=== PATIENT | male | born 1950 | race Caucasian/White ===

== ENCOUNTER 2016-10-22 12:17 | Emergency (ER) | payer MEDICARE, OTHER ==
--- NOTE | 2016-10-22 12:20 | EDM.PDOC ---
ED HPI GENERAL MEDICAL PROBLEM - General Chief Complaint: Eye Problems Stated Complaint: LT EYE CLOUDED VISION Time Seen by Provider: 10/22/16 12:20 - History of Present Illness INITIAL COMMENTS - FREE TEXT/NARRATIVE: 65 year old male presents emergency room with left-sided vision changes. This was first noticed about 3:00 this morning the patient awoke and noticed he had a spot in his left vision the spot would move when he looked to the com writer to the left or upper down at times it had a almost spiderweb appearance the comes and goes. The patient has a history of advanced coronary artery disease he 's had three-vessel bypass in the past he takes 81 mg of aspirin daily. He is treated for hyperlipidemia with Pravachol. He has an extensive family history of vascular problems. - Related Data Allergies Allergy/AdvReac Type Severity Reaction Status Date / Time ciprofloxacin Allergy Severe Swollen Verified 10/22/16 12:25 Tongue Penicillins AdvReac Severe Fainting Verified 10/22/16 12:25 Home Meds: Home Meds Cyclobenzaprine [Flexeril] 5 mg PO ASDIRECTED PRN 05/10/14 [History] DULoxetine [Cymbalta] 60 mg PO DAILY 05/10/14 [History] Pravastatin [Pravachol] 40 mg PO DAILY 05/10/14 [History] Tamsulosin HCl [Flomax] 0.4 mg PO QPM #14 cap.er.24h 05/10/14 [Rx] metFORMIN HCl [Metformin HCl] 500 mg PO DAILY 05/10/14 [History] Aspirin [Ecotrin] 81 mg PO DAILY 08/24/15 [History] Mometasone Furoate [Nasonex] 17 gm NS ASDIRECTED PRN 08/24/15 [History] Past Medical History Cardiovascular History: Reports: High Cholesterol Gastrointestinal History: Reports: Hemorrhoids, Other (See Below) Other Gastrointestinal History: hernia (umbilical) Musculoskeletal History: Reports: Other (See Below) Other Musculoskeletal History: carpal tunnel Endocrine/Metabolic History: Reports: Diabetes, Type II Dermatologic History: Reports: Other (See Below) Other Dermatologic History: "back rash" chronic - Past Surgical History HEENT Surgical History: Reports: Other (See Below) Cardiovascular Surgical History: Reports: Percutaneous Transluminal Angioplasty GI Surgical History: Reports: Hernia Repair/Other Neurological Surgical History: Reports: Laminectomy, Other (See Below) Musculoskeletal Surgical History: Reports: Carpal Tunnel, Knee Replacement Social & Family History - Tobacco Use Smoking Status *Q: Never Smoker Years of Tobacco use: 20 Packs/Tins Daily: 1 Used Tobacco, but Quit: Yes Month Tobacco Last Used: 11 Second Hand Smoke Exposure: No - Alcohol Use Days Per Week of Alcohol Use: 2 Number of Drinks Per Day: 1 Total Drinks Per Week: 2 - Recreational Drug Use Recreational Drug Use: No Drug Use in Last 12 Months: No ED ROS GENERAL - Review of Systems Review Of Systems: See Below Constitutional: Reports: No Symptoms HEENT: Denies: Ear Pain, Eye Discharge, Eye Pain, Rhinitis, Sinus Problem Respiratory: Reports: No Symptoms Cardiovascular: Reports: No Symptoms GI/Abdominal: Reports: No Symptoms : Reports: No Symptoms Neurological: Reports: No Symptoms. Denies: Confusion, Dizziness, Headache, Numbness, Pre-Existing Deficit ED EXAM GENERAL W FULL EYE - Physical Exam Exam: See Below Exam Limited By: No Limitations General Appearance: Alert, No Apparent Distress Eye Exam: Bilateral Eye: EOMI, Normal Inspection, PERRL, Other (Visual bess are intact both eyes.) Visual Acuity (R) 20/: 25 Visual Acuity (L) 20/: 25 (20/20 with both eyes) With Correction: No Eyelids: Left: Normal Appearance Conjunctiva & Sclera: Bilateral: Normal Appearance Cornea Exam: Bilateral: Normal Appearance Pupils: Normal Accommodation Pupillary Reaction: Bilateral: Brisk Anterior Chamber: Bilateral: Normal Appearance Posterior Chamber: Bilateral: Unable to Examine (I cannot get good views of the optic disc) Respiratory/Chest: No Respiratory Distress, Lungs Clear, Normal Breath Sounds Cardiovascular: Regular Rate, Rhythm, No Edema, No Murmur Course - Vital Signs Last Recorded V/S: Last Vital Signs Temp 36.4 C 10/22/16 12:22 Pulse 77 10/22/16 12:22 Resp 18 10/22/16 12:22 BP 143/85 H 10/22/16 12:22 Pulse Ox 96 10/22/16 12:22 - Orders/Labs/Meds Labs: Laboratory Tests 10/22/16 10/22/16 10/22/16 Range/Units 13:17 13:17 13:17 WBC 7.33 (4.23-9.07) K/mm3 RBC 4.66 (4.63-6.08) M/mm3 Hgb 13.6 L (13.7-17.5) gm/L Hct 41.4 (40.1-51.0) % MCV 88.8 (79.0-92.2) fl MCH 29.2 (25.7-32.2) pg MCHC 32.9 (32.2-35.5) g/dl RDW Std Deviation 45.9 H (35.1-43.9) fL Plt Count 182 (163-337) K/mm3 MPV 10.4 (9.4-12.3) fl Neutrophils % (Manual) 65 H (40-60) % Band Neutrophils % 0 (0-10) % Lymphocytes % (Manual) 22 (20-40) % Atypical Lymphs % 0 % Monocytes % (Manual) 9 (2-10) % Eosinophils % (Manual) 2 (0.8-7.0) % Basophils % (Manual) 2 H (0.2-1.2) Platelet Estimate Adequate RBC Morph Comment Normal ESR 9 (0-15) mm/hr C-Reactive Protein < 0.2 (<1.0) mg/dL Meds: Medications Discontinued Medications Generic Name Dose Route Start Last Admin Trade Name Freq PRN Reason Stop Dose Admin Aspirin 325 mg 10/22/16 13:11 10/22/16 13:21 Ecotrin PO 10/22/16 13:12 325 mg ONETIME ONE Administration - Re-Assessments/Exams Free Text/Narrative Re-Assessment/Exam: 10/22/16 13:30 Patient will have his aspirin increased to 325 mg daily case discussed with Dr. Catherine who recommends checking a CBC to ensure he is not anemic sedimentation rate and C-reactive protein to make sure he doesn't have an inflammatory process going on the patient is on baby aspirin daily we'll increase this to 325 mg daily. The [facility] would like for the patient to have a carotid Doppler and echocardiogram done as soon as possible and the patient follow-up with him on Monday. The patient should check in with the [facility] by phone tomorrow. Departure - Departure Time of Disposition: 14:19 Disposition: Home, Self-Care 01 Clinical Impression: Retinal artery occlusion, branch - Discharge Information Instructions: Central Retinal Artery Occlusion Referrals: Gelacio Lloyd MD [Primary Care Provider] - Forms: ED Department Discharge Additional Instructions: Return to the emergency room with any questions problems worsening symptoms. Increase your daily aspirin from 81 mg, or a baby aspirin, to a regular aspirin , or 325 mg. For today you received this in the emergency room. So start this tomorrow morning. Call Dr. Catherine tomorrow, Monday. [phone], this is his cell number. His office number is [phone]. The plan is for you to be scheduled for a echocardiogram, this is an ultrasound your heart and a carotid Doppler, a ultrasound of your carotid arteries Monday morning and then follow-up with Dr. Catherine later that afternoon. This studies in the physician appointment will all be in [place].
[2016-10-22 12:59] VITALS: BP 143/85
[2016-10-22] MEDS ORDERED: Aspirin 325 MG Tab.EC PO ONE (13:11)
== END 2016-10-22 14:40 | disposition home or self-care (01) ==
LOC: JD.ED 12:17
DX: H34.232 Retinal artery branch occlusion, left eye (principal); E78.00 Pure hypercholesterolemia, unspecified; E11.9 Type 2 diabetes mellitus without complications; Z88.0 Allergy status to penicillin; Z79.899 Other long term (current) drug therapy; Z79.82 Long term (current) use of aspirin; Z79.84 Long term (current) use of oral hypoglycemic drugs; Z96.659 Presence of unspecified artificial knee joint
CPT/HCPCS: 36415; 85025; 85652; 86140; 99284; A9270

== ENCOUNTER 2020-02-26 20:55 | Emergency (ER) | payer MEDICARE, OTHER ==
[2020-02-26] MEDS ORDERED: Sodium Chloride 0.9% 1,000 ML IV SCH (21:30)
--- NOTE | 2020-02-26 21:32 | EDM.PDOC ---
ED HPI GENERAL MEDICAL PROBLEM - General Chief Complaint: Respiratory Problem Stated Complaint: CHEST PAIN/SOB Time Seen by Provider: 02/26/20 21:16 Source of Information: Reports: Patient, Family (son) History Limitations: Reports: No Limitations - History of Present Illness INITIAL COMMENTS - FREE TEXT/NARRATIVE: 69-year-old male presents to the ED in the accompaniment of his son. He resides in [place], [place]. Patient states he was exposed to COVID-19 illness around [place] time when he took gifts over to one of his sons home. He started to develop symptoms February 12 and was diagnosed Covid positive on February 17. He is they are out of quarantine. States he had a really bad headache for about 4 to 5 days. Associated mild nasal congestion with r etention of his sense of smell and taste. Mild sore throat. Harsh nonproductive cough or occasionally bringing up some white sputum with associated fever chills. Overwhelming fatigue is his chief complaint today. He also developed chills and fever yesterday after fever had been gone for about a week. He was curled up in a blanket all day. Today's eaten some cereal and did have a hotdog for lunch. He denies any nausea vomiting or diarrhea. Patient is a type II diabetic controlled with Metformin. Is not sure how his sugars are doing. O2 sats upon arrival in the ED were 89% and settled around 93 to 94% on room air at rest. Patient is just completed a 5-day course of 6 mg of dexamethasone twice daily today. Was prescribed by Dr. Valladares. He states currently bringing up a great deal of yellowish phlegm perhaps mildly blood- tinged.. He states he coughed so hard he thought he was going to pass out. Denies any other recent changes to medications. Onset: Today, Sudden Onset Date: 02/26/20 (Paroxysmal cough early this morning with production of yellowish sputum and feeling like he was going to pass out.) Duration: Hour(s):, Constant, Getting Worse (Worse i.e. feeling more sick.) Location: Reports: Chest (Some right-sided pleuritic anterior chest pain with deep breathing and coughing) Quality: Reports: Sharp, Stabbing Severity: Moderate Improves with: Reports: None Worsens with: Reports: Other (Is with deep breathing and coughing.) Context: Reports: Other (Is at the tail end of COVID-19 illness with initial date of onset of illness February 12). Denies: Activity, Exercise, Lifting, Sick Contact, Trauma Associated Symptoms: Reports: Chest Pain, Cough (See history of present illness yellowish sputum today. Previously sputum was white in color), cough w sputum, Fever/Chills (Fever and chills starting), Malaise, Shortness of Breath, Weakness. Denies: Confusion, Diaphoresis, Headaches ( last night), Loss of Appe tite, Nausea/Vomiting (Mine on exertion.), Syncope Treatments MACHINE MAINTENANCE: Reports: Other (see below) (None today other than his regular meds) Chest Pain Score (Numeric/FACES): 3 - Related Data Allergies Allergy/AdvReac Type Severity Reaction Status Date / Time ciprofloxacin Allergy Severe Swollen Verified 02/26/20 21:10 Tongue Penicillins AdvReac Severe Fainting Verified 02/26/20 21:10 Home Meds: Home Meds DULoxetine [Cymbalta] 60 mg PO DAILY 05/10/14 [History] Pravastatin [Pravachol] 40 mg PO DAILY 05/10/14 [History] Tamsulosin HCl [Flomax] 0.4 mg PO QPM #14 cap.er.24h 05/10/14 [Rx] metFORMIN HCl [Metformin HCl] 500 mg PO BID 05/10/14 [History] Aspirin [Ecotrin] 81 mg PO DAILY 08/24/15 [History] Gabapentin [Neurontin] 600 mg PO TID 02/26/20 [History] Nitroglycerin 1 tab SL ASDIRECTED PRN 02/26/20 [History] oxyCODONE HCl/Acetaminophen [Oxycodone-Acetaminophen 5-325] 1 tab PO QID PRN 02/26/20 [History] Azithromycin [Zithromax] 250 mg PO DAILY #6 tablet 02/27/20 [Rx] Past Medical History HEENT History: Reports: Cataract, Impaired Vision Cardiovascular History: Reports: High Cholesterol Respiratory History: Reports: Sleep Apnea, Other (See Below) (A CPAP at bedtime. Of pneumonia at least once in the past) Gastrointestinal History: Reports: Hemorrhoids, Other (See Below) Other Gastrointestinal History: hernia (umbilical) Genitourinary History: Reports: BPH (Takes tamsulosin daily.), Prostate Disorder, Renal Calculus Musculoskeletal History: Reports: Other (See Below) Other Musculoskeletal History: carpal tunnel Endocrine/Metabolic History: Reports: Diabetes, Type II Hematologic History: Reports: Other (See Below) (DVT left lower extremity after being laid up for a period time with a broken bones in his left foot has been off anticoagulants for many years) Dermatologic History: Reports: Other (See Below) Other Dermatologic History: "back rash" chronic - Past Surgical History HEENT Surgical History: Reports: Other (See Below) Cardiovascular Surgical History: Reports: Percutaneous Transluminal Angioplasty GI Surgical History: Reports: Hernia Repair/Other Neurological Surgical History: Reports: Laminectomy, Other (See Below) Musculoskeletal Surgical History: Reports: Carpal Tunnel, Knee Replacement Social & Family History - Family History Family Medical History: No Pertinent Family History - Caffeine Use Caffeine Use: Reports: Coffee - Living Situation & Occupation Living situation: Reports: (For employed [employer]. apparently is currently in [place]) Occupation: Employed ED ROS GENERAL - Review of Systems Review Of Systems: See Below Constitutional: Reports: Fever, Chills, Malaise, Weakness, Fatigue, Decreased Appetite. Denies: Weight Loss HEENT: Reports: Glasses, Hearing Loss (For reading. Mildly hard of hearing and does not wear hearing aids.) Respiratory: Reports: Shortness of Breath, Wheezing, Pleuritic Chest Pain, Cough (Pleuritic right anterior chest pain. Severe paroxysmal cough with a change to yellow sputum this morning compared to white), Sputum ( the last several days.). Denies: Hemoptysis ( Yellow sputum) Cardiovascular: Reports: Chest Pain (Right-sided pleuritic chest pain worse with coughing), Blood Pressure Problem, Dyspnea on Exertion ( left lower extremity edema post DVT in the past.), Edema (With severe coughing this morning he nearly passed out. Always has a little bit of), Lightheadedness, Palpitations. Denies: Claudication, Orthopnea Endocrine: Reports: Fatigue (Overwhelming fatigue and plays out easily on minimal exertion.), Polydypsia, Polyuria GI/Abdominal: Denies: Constipation, Nausea, Vomiting : Reports: Frequency, Other (BPH). Denies: Incontinence Musculoskeletal: Reports: Neck Pain, Shoulder Pain (Arthritic degenerative disc disease cervical spine), Back Pain (Chronic low low back pain. Patient had multilevel laminectomy and discectomies which failed and he has chronic severe sciatica pain left anterior medial thigh for which she takes gabapentin. His back is had multiple surgeries with rods he believes from S1-2 T10.), Joint Pain ( rotator cuff disease both shoulders arthritic change knees and hips) Skin: Reports: No Symptoms Neurological: Reports: Dizziness, Headache (With coughing this morning.), Difficulty Walking, Weakness. Denies: Confusion, Numbness ( Mild headache today), Syncope, Tingling, Tremors (Dyspnea and weakness), Trouble Speaking, Change in Speech, Gait Disturbance Psychiatric: Reports: No Symptoms Hematologic/Lymphatic: Reports: No Symptoms Immunologic: Reports: No Symptoms ED EXAM, GENERAL - Physical Exam Exam: See Below Exam Limited By: No Limitations General Appearance: Alert, Mild Distress, Other (Peers to not be feeling well. Temperature is 36.2 heart rate was 47 and sinus bradycardia in the monitor respiratory to 16 with O2 sats of 93% room air at rest. 89% at time of presentation to the ED BP mildly elevated 178/87.) Eye Exam: Bilateral Eye: Normal Inspection (No scleral icterus or blepharal pallor.), PERRL Ears: Normal TMs Throat/Mouth: Normal Inspection, Normal Lips, Normal Oropharynx, Other Head: Atraumatic (Is moist.), Normocephalic, Other Neck: Limited Range of Motion (Overt signs of any head or facial trauma crepitus on lateral rotation with loss of 5 degrees lateral flexion extension). No: Carotid Bruit, Lymphadenopathy (L) ( and flexion.), Lymphadenopathy (R), Thyromegaly Respiratory/Chest: No Accessory Muscle Use ( Left lung is clear to auscultation.), Decreased Breath Sounds (Mildly decreased breath sounds left lung base no dullness to percussion to suggest pleural effusion), Rhonchi (Tight throughout the posterior right lung field with a few rales right lung base.). No: Respiratory Distress Cardiovascular: No Gallop, No Murmur, No Rub, Bradycardia. No: Normal Peripheral Pulses, No Edema Peripheral Pulses: 2+: Carotid (L), Carotid (R), Posterior Tibial (L), Posterior Tibial (R), Dorsalis Pedis (L), Dorsalis Pedis (R) GI/Abdominal: Normal Bowel Sounds, Non-Tender, No Organomegaly, No Mass, Pelvis Stable, Other (Mildly obese. Firm to palpation). No: Guarding, Rigid, Rebound, Tender Back Exam: Other (Full surgeries lumbar spine well-healed scars) Extremities: Pedal Edema (Trace edema left ankle and dorsal foot. Right lower extremity is normal), Other (Degenerative arthritic changes knees with limited internal/external rotation of both hips.) Neurological: Alert, Oriented, CN II-XII Intact, Normal Cognition, Other (Antalgic gait limping left side) Psychiatric: Normal Affect, Normal Mood Skin Exam: Warm, Dry, Normal Color, No Rash #1 Interpretation EKG Date: 02/26/20 Time: 21:10 Rhythm: Other Rate (Beats/Min): 47 [place]: Other ([place] is 0 degrees suggesting horizontal heart) P-Wave: Present QRS: Other (Near Q-wave V1 V2 suggestive of old anteroseptal myocardial infarction.) ST-T: Other (T wave flattening leads III, aVF nonspecific finding wandering baseline) QT: Normal EKG Interpretation Comments: Borderline ECG Course - Vital Signs Last Recorded V/S: Last Vital Signs Temp 36.2 C 02/26/20 21:06 Pulse 47 L 02/26/20 21:06 Resp 16 02/26/20 21:06 BP 178/87 H 02/26/20 21:06 Pulse Ox 93 L 02/26/20 21:06 - Orders/Labs/Meds Orders: Active Orders 24 hr Category Date Time Status EKG Documentation Completion [RC] STAT Care 02/26/20 21:29 Active Chest 1V Frontal [CR] Stat Exams 02/26/20 21:29 Taken Chest PE [Ang Chest] [CT] Stat Exams 02/26/20 22:31 Taken CULTURE BLOOD [BC] Stat Lab 02/26/20 21:53 Received CULTURE BLOOD [BC] Stat Lab 02/26/20 22:00 Received URINALYSIS W/MICROSCOPIC [UA W/MICROSCOPIC] [URIN] Stat Lab 02/26/20 21:31 Ordered Azithromycin [Zithromax] 500 mg Med 02/27/20 00:15 Active Sodium Chloride 0.9% [Normal Saline (AdvBag)] 250 ml IV Q24H Sodium Chloride 0.9% [Normal Saline] 1,000 ml Med 02/26/20 21:30 Active IV ASDIRECTED Blood Culture x2 Reflex Set [OM.PC] Stat Oth 02/26/20 21:30 Ordered Isolation [COMM] Routine Oth 02/26/20 21:35 Ordered EKG 12 Lead [EK] Stat Ther 02/26/20 21:16 Stop Req Medication Orders Sodium Chloride (Normal Saline) 1,000 mls @ 100 mls/hr IV ASDIRECTED ROBIN Last Admin: 02/26/20 21:55 Dose: 100 mls/hr Documented by: TRACI Azithromycin 500 mg/ Sodium (Chloride) 250 mls @ 250 mls/hr IV Q24H ROBIN Last Admin: 02/27/20 00:19 Dose: 250 mls/hr Documented by: TRACI Labs: Laboratory Tests 02/26/20 02/26/20 02/26/20 Range/Units 21:17 21:17 21:17 WBC 11.29 H (4.23-9.07) K/mm3 RBC 5.20 (4.63-6.08) M/mm3 Hgb 14.5 (13.7-17.5) gm/dl Hct 44.8 (40.1-51.0) % MCV 86.2 (79.0-92.2) fl MCH 27.9 (25.7-32.2) pg MCHC 32.4 (32.2-35.5) g/dl RDW Std Deviation 44.5 H (35.1-43.9) fL Plt Count 199 (163-337) K/mm3 MPV 10.7 (9.4-12.3) fl Neutrophils % (Manual) 82 H (40-60) % Band Neutrophils % 0 (0-10) % Lymphocytes % (Manual) 14 L (20-40) % Atypical Lymphs % 0 % Monocytes % (Manual) 4 (2-10) % Eosinophils % (Manual) 0 L (0.8-7.0) % Basophils % (Manual) 0 L (0.2-1.2) Platelet Estimate Adequate RBC Morph Comment Normal PT 10.6 (9.7-12.0) SECONDS INR 0.99 APTT 25.9 (21.7-31.4) SECONDS D-Dimer, Quantitative 3.67 H (0.19-0.50) mg/L Sodium 135 L (136-145) mEq/L Potassium 4.9 (3.5-5.1) mEq/L Chloride 100 (98-107) mEq/L Carbon Dioxide 25 (21-32) mEq/L Anion Gap 14.9 (5-15) BUN 25 H (7-18) mg/dL Creatinine 1.0 (0.7-1.3) mg/dL Est Cr Clr Drug Dosing TNP Estimated GFR (MDRD) > 60 (>60) mL/min BUN/Creatinine Ratio 25.0 H (14-18) Glucose 273 H (80-115) mg/dL Hemoglobin A1c (4.50-6.20) % Lactic Acid (0.4-2.0) mmol/L Calcium 8.7 (8.5-10.1) mg/dL Magnesium 2.0 (1.8-2.4) mg/dl Ferritin (26-388) ng/ml Total Bilirubin 0.7 (0.2-1.0) mg/dL AST 28 (15-37) U/L ALT 53 (16-63) U/L Alkaline Phosphatase 85 (46-116) U/L Lactate Dehydrogenase 279 H (85-227) U/L CK-MB (CK-2) < 0.5 (0-3.6) ng/ml Troponin I < 0.017 (0.00-0.056) ng/mL C-Reactive Protein 7.3 H* (<1.0) mg/dL NT-Pro-B Natriuret Pep (0-125) pg/mL Total Protein 7.3 (6.4-8.2) g/dl Albumin 3.0 L (3.4-5.0) g/dl Globulin 4.3 gm/dL Albumin/Globulin Ratio 0.7 L (1-2) 02/26/20 02/26/20 02/26/20 Range/Units 21:17 21:17 21:17 WBC (4.23-9.07) K/mm3 RBC (4.63-6.08) M/mm3 Hgb (13.7-17.5) gm/dl Hct (40.1-51.0) % MCV (79.0-92.2) fl MCH (25.7-32.2) pg MCHC (32.2-35.5) g/dl RDW Std Deviation (35.1-43.9) fL Plt Count (163-337) K/mm3 MPV (9.4-12.3) fl Neutrophils % (Manual) (40-60) % Band Neutrophils % (0-10) % Lymphocytes % (Manual) (20-40) % Atypical Lymphs % % Monocytes % (Manual) (2-10) % Eosinophils % (Manual) (0.8-7.0) % Basophils % (Manual) (0.2-1.2) Platelet Estimate RBC Morph Comment PT (9.7-12.0) SECONDS INR APTT (21.7-31.4) SECONDS D-Dimer, Quantitative (0.19-0.50) mg/L Sodium (136-145) mEq/L Potassium (3.5-5.1) mEq/L Chloride (98-107) mEq/L Carbon Dioxide (21-32) mEq/L Anion Gap (5-15) BUN (7-18) mg/dL Creatinine (0.7-1.3) mg/dL Est Cr Clr Drug Dosing Estimated GFR (MDRD) (>60) mL/min BUN/Creatinine Ratio (14-18) Glucose (80-115) mg/dL Hemoglobin A1c 7.10 H (4.50-6.20) % Lactic Acid (0.4-2.0) mmol/L Calcium (8.5-10.1) mg/dL Magnesium (1.8-2.4) mg/dl Ferritin 679 H (26-388) ng/ml Total Bilirubin (0.2-1.0) mg/dL AST (15-37) U/L ALT (16-63) U/L Alkaline Phosphatase (46-116) U/L Lactate Dehydrogenase (85-227) U/L CK-MB (CK-2) (0-3.6) ng/ml Troponin I (0.00-0.056) ng/mL C-Reactive Protein (<1.0) mg/dL NT-Pro-B Natriuret Pep 254 H (0-125) pg/mL Total Protein (6.4-8.2) g/dl Albumin (3.4-5.0) g/dl Globulin gm/dL Albumin/Globulin Ratio (1-2) 02/26/20 Range/Units 21:53 WBC (4.23-9.07) K/mm3 RBC (4.63-6.08) M/mm3 Hgb (13.7-17.5) gm/dl Hct (40.1-51.0) % MCV (79.0-92.2) fl MCH (25.7-32.2) pg MCHC (32.2-35.5) g/dl RDW Std Deviation (35.1-43.9) fL Plt Count (163-337) K/mm3 MPV (9.4-12.3) fl Neutrophils % (Manual) (40-60) % Band Neutrophils % (0-10) % Lymphocytes % (Manual) (20-40) % Atypical Lymphs % % Monocytes % (Manual) (2-10) % Eosinophils % (Manual) (0.8-7.0) % Basophils % (Manual) (0.2-1.2) Platelet Estimate RBC Morph Comment PT (9.7-12.0) SECONDS INR APTT (21.7-31.4) SECONDS D-Dimer, Quantitative (0.19-0.50) mg/L Sodium (136-145) mEq/L Potassium (3.5-5.1) mEq/L Chloride (98-107) mEq/L Carbon Dioxide (21-32) mEq/L Anion Gap (5-15) BUN (7-18) mg/dL Creatinine (0.7-1.3) mg/dL Est Cr Clr Drug Dosing Estimated GFR (MDRD) (>60) mL/min BUN/Creatinine Ratio (14-18) Glucose (80-115) mg/dL Hemoglobin A1c (4.50-6.20) % Lactic Acid 1.8 (0.4-2.0) mmol/L Calcium (8.5-10.1) mg/dL Magnesium (1.8-2.4) mg/dl Ferritin (26-388) ng/ml Total Bilirubin (0.2-1.0) mg/dL AST (15-37) U/L ALT (16-63) U/L Alkaline Phosphatase (46-116) U/L Lactate Dehydrogenase (85-227) U/L CK-MB (CK-2) (0-3.6) ng/ml Troponin I (0.00-0.056) ng/mL C-Reactive Protein (<1.0) mg/dL NT-Pro-B Natriuret Pep (0-125) pg/mL Total Protein (6.4-8.2) g/dl Albumin (3.4-5.0) g/dl Globulin gm/dL Albumin/Globulin Ratio (1-2) Meds: Medications Generic Name Dose Route Start Last Admin Trade Name Dexter PRN Reason Stop Dose Admin Sodium Chloride 1,000 mls @ 100 mls/hr 02/26/20 21:30 02/26/20 21:55 Normal Saline IV 100 mls/hr ASDIRECTED ROBIN Administration Azithromycin 500 mg/ Sodium 250 mls @ 250 mls/hr 02/27/20 00:15 02/27/20 00:19 Chloride IV 250 mls/hr Q24H ROBIN Administration - Radiology Interpretation Free Text/Narrative:: 69-year-old male goal 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 He states he was exposed to COVID-19 illness shortly after [place] and became symptomatic with headache body aches sore throat and cough around 12 February. He tested positive for COVID-19 illness on February 17. Today he just finished a 5-day course of dexamethasone 6 mg twice daily from Dr. Brenda Chance. This morning he developed a severe paroxysmal cough producing yellowish sputum and associated fever chills yesterday. Increased weakness and increased loss of appetite today. Otherwise he thought he was on the mend. O2 sats are 93% at the time of presentation to the ED. Does have adventitial sounds throughout the right lung worrisome for possible developing pneumonia. Afebrile at the time of my exam. Septic work-up will be commenced. Of note the patient is a type II diabetic controlled with Metformin - Re-Assessments/Exams Free Text/Narrative Re-Assessment/Exam: 02/26/20 22:30 Hematology reveals a mildly elevated white count at 11.29 with 82% neutrophils no bands cells reported hemoglobin 14.5 with a hematocrit of 44.8 platelet count 199,000. PT is 10.6 with an INR of 0.99. PTT is 25.9 D- dimer is markedly elevated at 3.67. Sodium 135 with a potassium of 4.9 chloride 100 with a bicarb of 25 and a gap is 14.9 BUN is 25 creatinine is 1.0 and a GFR is greater than 60. Glucose 273 and is a type II diabetic control with Metformin 500 mg twice daily hemoglobin A1c is 7.10 calcium is 8.7 magnesium is 2.0 serum ferritin remains elevated at 679 liver function normal lactic dehydrogenase mildly elevated at 279. CK-MB fraction is less than 0.5 troponin I is less than 0.017 C-reactive protein is 7.3 BNP is 254 total protein 7.3 with an albumin fraction of 3.0 renal function is therefore good enough to tolerate IV contrast media and he will undergo CT pulmonary angiogram due to elevated D- dimer which is secondary to COVID-19 illness. Chest x-ray done portably today reveals mild cardiomegaly and mild hazy infiltrates both lower lobes and perhaps right middle lobe compatible with COVID-19 pneumonitis. No consolidated pneumonia is evident. 02/26/20 22:39 I have Discussed the findings with the patient and his son today of the lab test. He will need a CT pulmonary angiogram of his chest to rule out PE as a cause of his pleuritic right anterior chest pain and elevated D-dimer of 3.57. Especially in light of having a previous DVT left lower extremity in the past. O2 sats are sitting between 91 and 93%. Patient's Metformin will have to be placed on hold for the next 72 hours. 02/26/20 23:59 CT pulmonary angiogram of the chest has been completed. It is of poor quality due to timing of administration of contrast media. There is no obvious pulmonary emboli in the first second or third branches of the pulmonary arterial system. There appears to be an area of pneumonic consolidation right middle lobe with bibasilar atelectasis. Subtle peripheral groundglass opacities are present in upper lungs bilaterally. Hypoventilatory changes versus additional groundglass opacities in the lingula and right middle lobe and dependent portions of the lower lobes is appreciated. Will be given the first dose of azithromycin 500 mg intravenously while in department. He will then be placed on a Z-Ra to take to 50 mg once daily for another 6 days. He med list suggest that he is allergic to ciprofloxacin and penicillin with syncopal event from the penicillin suggesting possible anaphylactic reaction. 2 sats remained 94 to 95% on room air. Departure - Departure Time of Disposition: 00:55 Disposition: Home, Self-Care 01 Condition: Fair Clinical Impression: COVID-19 determined by clinical diagnostic criteria, Right middle lobe pulmonary infiltrate - Discharge Information *PRESCRIPTION DRUG MONITORING PROGRAM REVIEWED*: Not Applicable *COPY OF PRESCRIPTION DRUG MONITORING REPORT IN PATIENT ANA MARIA: Not Applicable Prescriptions: Azithromycin [Zithromax] 250 mg PO DAILY #6 tablet Instructions: COVID-19 Frequently Asked Questions Referrals: Gelacio Lloyd MD [Primary Care Provider] - Forms: ED Department Discharge Additional Instructions: Evaluation in the emergency room today in regards to gradually recovering from COVID-19 illness. You are felt to be on day 14 of illness and are no longer contagious to other people. Chest x-ray done in the emergency room does confirm bilateral infiltrates in both lower lobes compatible with Covid viral pneumonia . You just finished a 5-day course of dexamethasone to reduce inflammation in the lungs. Lab test revealed an elevated D-dimer which is a marker for potential blood clot development and with your past history of a blood clot in your left leg it was felt prudent to pursue a CT pulmonary angiogram of the chest to rule out any blood clots in the lungs which have been occurring intermittently during COVID-19 illness. No evidence of pulmonary emboli were identified in your lungs. However it does suggest that there is a area of consolidation in the right middle lobe of your lung on the right side compatible with a developing pneumonia. This would explain why your sputum changed to yellow color this morning and recurrence of fever and chills. You were therefore given initial dose of antibiotic azithromycin 500 mg intravenously and you will need to take the pill form of this medication to 50 mg once daily at bedtime for the next 6 days starting tonight. Due to receiving intravenous contrast medication you need to put your Metformin medication which is for your diabetes on hold for the next 2-1/2 days to prevent any side effects on the kidneys. Continue Tylenol 650 mg every 4 hours as needed for fever relief. If not feeling markedly improved in 72 to 96 hours you should be seen again. Dust arranging follow-up with your primary care practitioner Dr. Valladares in approximately 1 week's time or sooner if any other problems occur or return to the ED. Sepsis Event Note (ED) - Evaluation Sepsis Screening Result: No Definite Risk - Focused Exam Vital Signs: Vital Signs Temp Pulse Resp BP Pulse Ox 02/26/20 21:06 36.2 C 47 L 16 178/87 H 93 L - My Orders Last 24 Hours: My Active Orders 02/26/20 21:16 EKG 12 Lead [EK] Stat 02/26/20 21:29 EKG Documentation Completion [RC] STAT Chest 1V Frontal [CR] Stat 02/26/20 21:30 Sodium Chloride 0.9% [Normal Saline] 1,000 ml IV ASDIRECTED Blood Culture x2 Reflex Set [OM.PC] Stat 02/26/20 21:31 URINALYSIS W/MICROSCOPIC [UA W/MICROSCOPIC] [URIN] Stat 02/26/20 21:35 Isolation [COMM] Routine 02/26/20 21:53 CULTURE BLOOD [BC] Stat 02/26/20 22:00 CULTURE BLOOD [BC] Stat 02/26/20 22:31 Chest PE [Ang Chest] [CT] Stat 02/27/20 00:15 Azithromycin [Zithromax] 500 mg Sodium Chloride 0.9% [Normal Saline (AdvBag)] 250 ml IV Q24H - Assessment/Plan Last 24 Hours: My Active Orders 02/26/20 21:16 EKG 12 Lead [EK] Stat 02/26/20 21:29 EKG Documentation Completion [RC] STAT Chest 1V Frontal [CR] Stat 02/26/20 21:30 Sodium Chloride 0.9% [Normal Saline] 1,000 ml IV ASDIRECTED Blood Culture x2 Reflex Set [OM.PC] Stat 02/26/20 21:31 URINALYSIS W/MICROSCOPIC [UA W/MICROSCOPIC] [URIN] Stat 02/26/20 21:35 Isolation [COMM] Routine 02/26/20 21:53 CULTURE BLOOD [BC] Stat 02/26/20 22:00 CULTURE BLOOD [BC] Stat 02/26/20 22:31 Chest PE [Ang Chest] [CT] Stat 02/27/20 00:15 Azithromycin [Zithromax] 500 mg Sodium Chloride 0.9% [Normal Saline (AdvBag)] 250 ml IV Q24H
[2020-02-26 22:12] LABS: HEMOGLOBIN A1C 7.1 % (4.50-6.20)
[2020-02-27] MEDS ORDERED: Azithromycin 500 MG in Sodium Chloride 0.9% 250 ML IV SCH (00:15)
[2020-02-27 01:40] VITALS: BP 142/75; PULSE 82
--- NOTE | 2020-02-27 09:40 | CR ---
Chest: Frontal view of the chest was obtained. Comparison: Slight area of increased density is seen within the left base most likely due to atelectasis. Heart is felt to be slightly enlarged. Prior cervical spine surgery is noted. No acute osseous abnormality is seen. Impression: 1. Mild atelectasis within the left lung base. 2. Heart is slightly enlarged. 2. Nothing acute is definitely appreciated. Diagnostic code #2
--- NOTE | 2020-02-27 09:58 | CT ---
CT chest Technique: Multiple axial sections were obtained from above the lung apices inferiorly through the lung bases. Intravenous contrast was utilized. Study has been performed as a pulmonary angiogram protocol. Findings: Pulmonary arteries are moderately well opacified. No discrete filling defects are seen to indicate pulmonary embolism. Mediastinum and hilar regions show no adenopathy or mass. Small normal-sized lymph nodes are seen within the mediastinum. No axillary adenopathy is appreciated. Thoracic aorta shows no aneurysm. Heart size shows no pericardial effusion. Small portion of the visualized upper abdominal structures show no discrete abnormality. Lung window settings were reviewed. Slight increased density is seen within the lingula and right middle lobe as well as within both lower lobes. Lungs otherwise are clear. Bone window settings were reviewed. Previous upper lumbar spine surgery appears to be present. Slight degenerative change is noted within the spine. Impression: 1. Slight areas of increased density within the lingula and right middle lobe as well as within both lower lobes. Differential includes atelectasis as well as mild areas of pneumonia which includes viral pneumonia. 2. No findings of pulmonary embolism are appreciated. 3. Other findings believed to be incidental as noted above. Diagnostic code #3 I agree with preliminary report from [facility], finalized on 02/27/20, 1:09 AM [employer]
== END 2020-02-27 01:37 | disposition home or self-care (01) ==
LOC: JD.ED 20:55
DX: U07.1 COVID-19 (principal); R91.8 Other nonspecific abnormal finding of lung field; E78.00 Pure hypercholesterolemia, unspecified; E11.9 Type 2 diabetes mellitus without complications; N40.0 Benign prostatic hyperplasia without lower urinary tract symptoms; Z88.1 Allergy status to other antibiotic agents; Z88.0 Allergy status to penicillin; Z79.82 Long term (current) use of aspirin; Z79.84 Long term (current) use of oral hypoglycemic drugs; Z79.899 Other long term (current) drug therapy
CPT/HCPCS: 36415; 71045; 71275; 80053; 82553; 82728; 83036; 83605; 83615; 83735; 83880; 84484; 85007; 85027; 85379; 85610; 85730; 86140; 87040; 93005; 96365; 99284; J0456; J7030; J7050; 93010

== ENCOUNTER 2020-02-28 12:18 | Inpatient (IN) | payer MEDICARE, OTHER ==
[2020-02-28] MEDS ORDERED: cefTRIAXone 2 GM in Sodium Chloride 0.9% 100 ML IV ONE (13:09)
[2020-02-28] MEDS: Sodium Chloride 0.9% 10 ML Syringe FLUSH PRN (13:26)
--- NOTE | 2020-02-28 13:54 | CR ---
Chest: Portable view of the chest was obtained. Comparison: Prior chest x-ray of 02/26/20 Slight density is noted within the left lung base which appears fairly stable from prior chest x-ray. Lungs otherwise are clear without other acute parenchymal change. Heart size and mediastinum are within normal limits. Previous cervical spine surgery is seen. No acute osseous abnormality is appreciated. Impression: 1. Findings as noted above. No change from previous chest x-ray is seen. Diagnostic code #2
[2020-02-28] MEDS ORDERED: Sodium Chloride 0.9% 500 ML IV ONE (14:42)
--- NOTE | 2020-02-28 14:48 | EDM.PDOC ---
ED HPI GENERAL MEDICAL PROBLEM - General Chief Complaint: Respiratory Problem Stated Complaint: SOB Time Seen by Provider: 02/28/20 12:51 Source of Information: Reports: Patient, Family History Limitations: Reports: No Limitations - History of Present Illness INITIAL COMMENTS - FREE TEXT/NARRATIVE: The patient presents with shortness of breath. He was diagnosed with COVID 19 b ack on February 17. He was seen here 2 days ago for shortness of breath, cough and fever. He had a complete work up done and his D-dimer was elevated so a CT angio was done. The CT angio showed slight areas of increased density within the lingula and right middle lobe as well as within both lower lobes. Differential includes atelectasis as well as mild areas of pneumonia which includes viral pneumonia. No findings of pulmonary embolism are appreciated. The patient was started on zithromax. He had blood cultures done and 1 bottle grew out E-coli. Dr Oropeza called the patient and he was doing good. He got more short of bed last night. He also has been having low back pain since he got COVID 19. He had back surgery a few years ago. The E-coli is not commonly seen in pneumonia. He has no dysuria. He has no chest pain. He has no abdominal pain, nausea or vomiting. Onset: Gradual Duration: Day(s): Severity: Moderate Improves with: Reports: None Worsens with: Reports: None Associated Symptoms: Reports: Cough, Fever/Chills. Denies: Chest Pain, Headaches, Nausea/Vomiting, Shortness of Breath Lower Back Pain Score (Numeric/FACES): 7 - Related Data Allergies Allergy/AdvReac Type Severity Reaction Status Date / Time ciprofloxacin Allergy Severe Swollen Verified 02/28/20 12:51 Tongue Penicillins AdvReac Severe Fainting Verified 02/28/20 12:51 Home Meds: Home Meds DULoxetine [Cymbalta] 60 mg PO DAILY 05/10/14 [History] Pravastatin [Pravachol] 40 mg PO DAILY 05/10/14 [History] Tamsulosin HCl [Flomax] 0.4 mg PO QPM #14 cap.er.24h 05/10/14 [Rx] metFORMIN HCl [Metformin HCl] 500 mg PO BID 05/10/14 [History] Aspirin [Ecotrin] 81 mg PO DAILY 08/24/15 [History] Gabapentin [Neurontin] 600 mg PO TID 02/26/20 [History] Nitroglycerin 1 tab SL ASDIRECTED PRN 02/26/20 [History] oxyCODONE HCl/Acetaminophen [Oxycodone-Acetaminophen 5-325] 1 tab PO QID PRN 02/26/20 [History] Azithromycin [Zithromax] 250 mg PO DAILY #6 tablet 02/27/20 [Rx] Past Medical History HEENT History: Reports: Cataract, Impaired Vision Cardiovascular History: Reports: High Cholesterol Respiratory History: Reports: Sleep Apnea, Other (See Below) Gastrointestinal History: Reports: Hemorrhoids, Other (See Below) Other Gastrointestinal History: hernia (umbilical) Genitourinary History: Reports: BPH, Prostate Disorder, Renal Calculus Musculoskeletal History: Reports: Other (See Below) Other Musculoskeletal History: carpal tunnel Endocrine/Metabolic History: Reports: Diabetes, Type II Hematologic History: Reports: Other (See Below) Dermatologic History: Reports: Other (See Below) Other Dermatologic History: "back rash" chronic - Infectious Disease History Infectious Disease History: Reports: Novel Coronavirus - Past Surgical History HEENT Surgical History: Reports: Other (See Below) Other HEENT Surgeries/Procedures: sinus surgery Cardiovascular Surgical History: Reports: Percutaneous Transluminal Angioplasty Other Cardiovascular Surgeries/Procedures: 3 stents placed 5 years ago. GI Surgical History: Reports: Hernia Repair/Other Other GI Surgeries/Procedures: hemmorhoid surgery Neurological Surgical History: Reports: Laminectomy, Other (See Below) Other Neurological Surgeries/Procedures: neck surgery Musculoskeletal Surgical History: Reports: Carpal Tunnel, Knee Replacement Social & Family History - Family History Family Medical History: No Pertinent Family History - Tobacco Use Tobacco Use Status *Q: Never Tobacco User - Caffeine Use Caffeine Use: Reports: Coffee - Recreational Drug Use Recreational Drug Use: No - Living Situation & Occupation Living situation: Reports: (For employed [employer]. apparently is currently in [place]) Occupation: Employed ED ROS GENERAL - Review of Systems Review Of Systems: See Below Constitutional: Reports: Fever, Malaise, Weakness, Fatigue HEENT: Reports: No Symptoms Respiratory: Reports: No Symptoms Cardiovascular: Reports: No Symptoms Endocrine: Reports: Fatigue GI/Abdominal: Reports: No Symptoms : Reports: No Symptoms Musculoskeletal: Reports: Back Pain ED EXAM, GENERAL - Physical Exam Exam: See Below Exam Limited By: No Limitations General Appearance: Alert, No Apparent Distress Ears: Normal External Exam Nose: Normal Inspection Head: Atraumatic, Normocephalic Neck: Normal Inspection Respiratory/Chest: No Respiratory Distress, Lungs Clear, Normal Breath Sounds Cardiovascular: Regular Rate, Rhythm, No Edema, No Murmur GI/Abdominal: Soft, Non-Tender, No Organomegaly, No Mass Back Exam: Other (Pain to the lower back) Course - Vital Signs Last Recorded V/S: Last Vital Signs Temp 98.4 F 02/28/20 12:52 Pulse 66 02/28/20 12:52 Resp 13 02/28/20 12:52 BP 113/67 02/28/20 12:52 Pulse Ox 92 L 02/28/20 12:52 - Orders/Labs/Meds Orders: Active Orders 24 hr Category Date Time Status Cardiac Monitoring [RC] . DIRECTED Care 02/28/20 13:08 Active Oxygen Therapy [RC] PRN Care 02/28/20 13:08 Active Peripheral IV Care [RC] . DIRECTED Care 02/28/20 13:09 Active Sodium Chloride 0.9% [Normal Saline] 1,000 ml Med 02/28/20 16:00 Active IV ASDIRECTED Sodium Chloride 0.9% [Saline Flush] Med 02/28/20 13:08 Active 10 ml FLUSH ASDIRECTED PRN Peripheral IV Insertion Adult [OM.PC] Stat Oth 02/28/20 13:08 Ordered Medication Orders Sodium Chloride (Normal Saline) 1,000 mls @ 100 mls/hr IV ASDIRECTED ROBIN Sodium Chloride (Saline Flush) 10 ml FLUSH ASDIRECTED PRN PRN Reason: Keep Vein Open Last Admin: 02/28/20 13:26 Dose: 10 ml Documented by: ASHLEY Labs: Laboratory Tests 02/28/20 02/28/20 02/28/20 Range/Units 13:20 13:20 13:20 WBC 9.79 H (4.23-9.07) K/mm3 RBC 5.18 (4.63-6.08) M/mm3 Hgb 14.5 (13.7-17.5) gm/dl Hct 44.2 (40.1-51.0) % MCV 85.3 (79.0-92.2) fl MCH 28.0 (25.7-32.2) pg MCHC 32.8 (32.2-35.5) g/dl RDW Std Deviation 43.3 (35.1-43.9) fL Plt Count 216 (163-337) K/mm3 MPV 10.6 (9.4-12.3) fl Neut % (Auto) 75.1 H (34.0-67.9) % Lymph % (Auto) 12.7 L (21.8-53.1) % [place] % (Auto) 10.3 (5.3-12.2) % Eos % (Auto) 0.8 (0.8-7.0) Baso % (Auto) 0.2 (0.1-1.2) % Neut # (Auto) 7.35 H (1.78-5.38) K/mm3 Lymph # (Auto) 1.24 L (1.32-3.57) K/mm3 [place] # (Auto) 1.01 H (0.30-0.82) K/mm3 Eos # (Auto) 0.08 (0.04-0.54) K/mm3 Baso # (Auto) 0.02 (0.01-0.08) K/mm3 Manual Slide Review Normal smear PT 11.2 (9.7-12.0) SECONDS INR 1.05 APTT 23.7 (21.7-31.4) SECONDS D-Dimer, Quantitative 18.70 H (0.19-0.50) mg/L Puncture Site ABG pH (7.35-7.45) ABG pCO2 (35.0-45.0) mmHg ABG pO2 (80.0-100.0) mmHg ABG HCO3 (22.0-26.0) meq/L ABG O2 Saturation (96.0-97.0) % ABG Base Excess (-2-2.0) A-a Gradient mmHg O2 Delivery Device Oxygen Flow Rate FiO2 (21.00-100.00) % Sodium 138 (136-145) mEq/L Potassium 3.9 (3.5-5.1) mEq/L Chloride 101 (98-107) mEq/L Carbon Dioxide 26 (21-32) mEq/L Anion Gap 14.9 (5-15) BUN 22 H (7-18) mg/dL Creatinine 1.1 (0.7-1.3) mg/dL Est Cr Clr Drug Dosing 67.50 mL/min Estimated GFR (MDRD) > 60 (>60) mL/min BUN/Creatinine Ratio 20.0 H (14-18) Glucose 128 H (80-115) mg/dL Lactic Acid (0.4-2.0) mmol/L Calcium 8.5 (8.5-10.1) mg/dL Total Bilirubin 0.7 (0.2-1.0) mg/dL AST 29 (15-37) U/L ALT 72 H (16-63) U/L Alkaline Phosphatase 77 (46-116) U/L C-Reactive Protein 5.9 H* (<1.0) mg/dL Total Protein 6.9 (6.4-8.2) g/dl Albumin 2.8 L (3.4-5.0) g/dl Globulin 4.1 gm/dL Albumin/Globulin Ratio 0.7 L (1-2) Urine Color (Yellow) Urine Appearance (Clear) Urine pH (5.0-8.0) Ur Specific [place] (1.005-1.030) Urine Protein (Negative) Urine Glucose (UA) (Negative) Urine Ketones (Negative) Urine Occult Blood (Negative) Urine Nitrite (Negative) Urine Bilirubin (Negative) Urine Urobilinogen (0.2-1.0) Ur Leukocyte Esterase (Negative) Urine RBC (0-5) /hpf Urine WBC (0-5) /hpf Ur Squamous Epith Cells (0-5) /hpf Urine Bacteria (FEW) /hpf Urine Mucus (FEW) /hpf 02/28/20 02/28/20 02/28/20 Range/Units 13:20 15:04 16:35 WBC (4.23-9.07) K/mm3 RBC (4.63-6.08) M/mm3 Hgb (13.7-17.5) gm/dl Hct (40.1-51.0) % MCV (79.0-92.2) fl MCH (25.7-32.2) pg MCHC (32.2-35.5) g/dl RDW Std Deviation (35.1-43.9) fL Plt Count (163-337) K/mm3 MPV (9.4-12.3) fl Neut % (Auto) (34.0-67.9) % Lymph % (Auto) (21.8-53.1) % [place] % (Auto) (5.3-12.2) % Eos % (Auto) (0.8-7.0) Baso % (Auto) (0.1-1.2) % Neut # (Auto) (1.78-5.38) K/mm3 Lymph # (Auto) (1.32-3.57) K/mm3 [place] # (Auto) (0.30-0.82) K/mm3 Eos # (Auto) (0.04-0.54) K/mm3 Baso # (Auto) (0.01-0.08) K/mm3 Manual Slide Review PT (9.7-12.0) SECONDS INR APTT (21.7-31.4) SECONDS D-Dimer, Quantitative (0.19-0.50) mg/L Puncture Site Lt radial ABG pH 7.42 (7.35-7.45) ABG pCO2 37.3 (35.0-45.0) mmHg ABG pO2 74.0 L (80.0-100.0) mmHg ABG HCO3 24.0 (22.0-26.0) meq/L ABG O2 Saturation 95.5 L (96.0-97.0) % ABG Base Excess 0.3 (-2-2.0) A-a Gradient 50 mmHg O2 Delivery Device Nasal cannula Oxygen Flow Rate 1.5 FiO2 24.00 (21.00-100.00) % Sodium (136-145) mEq/L Potassium (3.5-5.1) mEq/L Chloride (98-107) mEq/L Carbon Dioxide (21-32) mEq/L Anion Gap (5-15) BUN (7-18) mg/dL Creatinine (0.7-1.3) mg/dL Est Cr Clr Drug Dosing mL/min Estimated GFR (MDRD) (>60) mL/min BUN/Creatinine Ratio (14-18) Glucose (80-115) mg/dL Lactic Acid 0.8 (0.4-2.0) mmol/L Calcium (8.5-10.1) mg/dL Total Bilirubin (0.2-1.0) mg/dL AST (15-37) U/L ALT (16-63) U/L Alkaline Phosphatase (46-116) U/L C-Reactive Protein (<1.0) mg/dL Total Protein (6.4-8.2) g/dl Albumin (3.4-5.0) g/dl Globulin gm/dL Albumin/Globulin Ratio (1-2) Urine Color Yellow (Yellow) Urine Appearance Clear (Clear) Urine pH 6.0 (5.0-8.0) Ur Specific [place] 1.020 (1.005-1.030) Urine Protein 1+ H (Negative) Urine Glucose (UA) Negative (Negative) Urine Ketones Negative (Negative) Urine Occult Blood Negative (Negative) Urine Nitrite Negative (Negative) Urine Bilirubin Negative (Negative) Urine Urobilinogen 0.2 (0.2-1.0) Ur Leukocyte Esterase Trace H (Negative) Urine RBC 0-5 (0-5) /hpf Urine WBC 0-5 (0-5) /hpf Ur Squamous Epith Cells 0-5 (0-5) /hpf Urine Bacteria Few (FEW) /hpf Urine Mucus Few (FEW) /hpf Meds: Medications Generic Name Dose Route Start Last Admin Trade Name Dexter PRN Reason Stop Dose Admin Sodium Chloride 1,000 mls @ 100 mls/hr 02/28/20 16:00 Normal Saline IV ASDIRECTED ROBIN Sodium Chloride 10 ml 02/28/20 13:08 02/28/20 13:26 Saline Flush FLUSH 10 ml ASDIRECTED PRN Administration Keep Vein Open Discontinued Medications Generic Name Dose Route Start Last Admin Trade Name Dexter PRN Reason Stop Dose Admin Dexamethasone 10 mg 02/28/20 16:24 02/28/20 16:36 Decadron IVPUSH 02/28/20 16:25 10 mg ONETIME ONE Administration Enoxaparin Sodium 40 mg 02/28/20 16:23 02/28/20 16:36 Lovenox SUBCUT 02/28/20 16:24 40 mg ONETIME ONE Administration Ceftriaxone Sodium 2 gm/ 100 mls @ 200 mls/hr 02/28/20 13:09 02/28/20 13:26 Sodium Chloride IV 02/28/20 13:38 200 mls/hr ONETIME ONE Administration Sodium Chloride 500 mls @ 1,000 mls/hr 02/28/20 14:42 02/28/20 15:58 Normal Saline IV 02/28/20 15:11 Infused .BOLUS ONE Infusion - Re-Assessments/Exams Free Text/Narrative Re-Assessment/Exam: 02/28/20 14:55 I ordered oxygen because his oxygen saturations were going down to 88% when I was examining him. I also ordered an IV, CXR, labs to include lactic acid and rocephin 2 grams IV. 02/28/20 14:57 His CXR shows slight density is noted within the left lung base which appears fairly stable from prior chest x-ray. His WBC was slightly elevated at 9.79. His D-dimer is elevated at 18.7 and it did go up more. His lactic acid ws normal. His ALT was up slightly at 72. His CRP was elevated at 5.9. I am waiting to get a UA. The E-coli is not commonly found in the respiratory track. He cannot urinate yet so I ordered a 500ml NS bolus. 02/28/20 16:25 His UA was positive for leukocyte esterase and protein. He still may have a kidney stone so I ordered a CT of his abdomen and pelvis. I feel he needs to be admitted. I called Dr Suero and he agreed to the admission. He wanted him to have lovenox 40mg subcutaneous and dexamethasone 10mg IV. 02/28/20 16:[address] of his abdomen and pelvis shows bilateral infiltrates and no sign of any kidney stones. Departure - Departure Time of Disposition: 16:45 Disposition: Admitted As Inpatient 66 Condition: Fair Clinical Impression: Hypoxia, COVID-19, Pneumonia due to COVID-19 virus, Bacteremia Low back pain Qualifiers: Chronicity: chronic Back pain laterality: bilateral Sciatica presence: without sciatica Qualified Code(s): M54.5 - Low back pain; G89.29 - Other chronic pain - Discharge Information Referrals: Gelacio Lloyd MD [Primary Care Provider] - Forms: ED Department Discharge Sepsis Event Note (ED) - Evaluation Sepsis Screening Result: No Definite Risk - Focused Exam Vital Signs: Vital Signs Temp Pulse Resp BP Pulse Ox 02/28/20 12:52 98.4 F 66 13 113/67 92 L - My Orders Last 24 Hours: My Active Orders 02/28/20 13:08 Cardiac Monitoring [RC] . DIRECTED Oxygen Therapy [RC] PRN Sodium Chloride 0.9% [Saline Flush] 10 ml FLUSH ASDIRECTED PRN Peripheral IV Insertion Adult [OM.PC] Stat 02/28/20 13:09 Peripheral IV Care [RC] . DIRECTED 02/28/20 16:00 Sodium Chloride 0.9% [Normal Saline] 1,000 ml IV ASDIRECTED - Assessment/Plan Last 24 Hours: My Active Orders 02/28/20 13:08 Cardiac Monitoring [RC] . DIRECTED Oxygen Therapy [RC] PRN Sodium Chloride 0.9% [Saline Flush] 10 ml FLUSH ASDIRECTED PRN Peripheral IV Insertion Adult [OM.PC] Stat 02/28/20 13:09 Peripheral IV Care [RC] . DIRECTED 02/28/20 16:00 Sodium Chloride 0.9% [Normal Saline] 1,000 ml IV ASDIRECTED
[2020-02-28] MEDS ORDERED: Enoxaparin 40 MG/0.4 ML Syringe SUBCUT ONE (16:23)
[2020-02-28] MEDS ORDERED: Dexamethasone 4 MG/ML SDV IVPUSH ONE (16:24)
--- NOTE | 2020-02-28 16:24 | PCM.HP.2 ---
H&P History of Present Illness - General Date of Service: 02/28/20 Admit Problem/Dx: Covid-19 Infection Source of Information: Patient, Old Records, Provider, RN Notes Reviewed History Limitations: Reports: No Limitations - History of Present Illness Initial Comments - Free Text/Narative: This is a 69 yo elderly white male with past medical hx/o Impaired Vision, HLD, CAD S/p PCTA x3 stents, MARISOL, BPH, DM2, Carpal Tunnel, Left Knee Replacement, Chronic Back Pain S/p Laminectomy, Rash, Umbilical Hernia, Hemorrhoids and Obesity who comes back to ED for possible refractory COVID-19 and Bacteremia. He was diagnosed with the viral infection back on February [address] He came out of quarantine but started to fall ill a couple of days ago. He was seen here in out local ED on and received oral antibiotic. No monoclonal antibodies administered at that time. He has not gotten the COVID-19 vaccine. His symptoms are mainly due to increasing shortness of breathe associated with cough, fever, generalized weakness and fatigue. His blood culture taken in ED revealed a GNR. His repeat work in ED today shows a CBC remarkable for WBC of 9.79, and Neutrophils of 75.1%. He was sating in the upper 80s on RA but his ABG shows pO2 of 74. His chemistry is significant for BUN of 22, BS of 128, ALT of 72, CRP of 5.9 and Albumin of 2.8. His UA is negative. His chest x-ray report read as stable slight density within the left lung base seen from previous study. His Abdominal/pelvis CT scan report read as multifocal pneumonia w/o renal calculi, ureteral dilatation or stones. Patient is coming in for further treatment of Possible Refractory COVID-19 and Bacteremia. Lower Back Pain Score (Numeric/FACES): 7 - Related Data Allergies/Adverse Reactions: Allergies Allergy/AdvReac Type Severity Reaction Status Date / Time ciprofloxacin Allergy Severe Swollen Verified 02/28/20 12:51 Tongue Penicillins AdvReac Mild Fainting Verified 02/29/20 08:08 Home Medications: Home Meds DULoxetine [Cymbalta] 60 mg PO DAILY 05/10/14 [History] Pravastatin [Pravachol] 40 mg PO DAILY 05/10/14 [History] Tamsulosin HCl [Flomax] 0.4 mg PO QPM #14 cap.er.24h 05/10/14 [Rx] metFORMIN HCl [Metformin HCl] 500 mg PO BID 05/10/14 [History] Aspirin [Ecotrin] 81 mg PO DAILY 08/24/15 [History] Gabapentin [Neurontin] 600 mg PO TID 02/26/20 [History] Nitroglycerin 1 tab SL ASDIRECTED PRN 02/26/20 [History] oxyCODONE HCl/Acetaminophen [Oxycodone-Acetaminophen 5-325] 1 tab PO QID PRN 02/26/20 [History] Azithromycin [Zithromax] 250 mg PO DAILY #6 tablet 02/27/20 [Rx] Past Medical History HEENT History: Reports: Cataract, Impaired Vision Cardiovascular History: Reports: High Cholesterol Respiratory History: Reports: Sleep Apnea, Other (See Below) Gastrointestinal History: Reports: Hemorrhoids, Other (See Below) Other Gastrointestinal History: hernia (umbilical) Genitourinary History: Reports: BPH, Prostate Disorder, Renal Calculus Musculoskeletal History: Reports: Other (See Below) Other Musculoskeletal History: carpal tunnel Endocrine/Metabolic History: Reports: Diabetes, Type II Hematologic History: Reports: Other (See Below) Dermatologic History: Reports: Other (See Below) Other Dermatologic History: "back rash" chronic - Infectious Disease History Infectious Disease History: Reports: Novel Coronavirus - Past Surgical History HEENT Surgical History: Reports: Other (See Below) Other HEENT Surgeries/Procedures: sinus surgery Cardiovascular Surgical History: Reports: Percutaneous Transluminal Angioplasty Other Cardiovascular Surgeries/Procedures: 3 stents placed 5 years ago. GI Surgical History: Reports: Hernia Repair/Other Other GI Surgeries/Procedures: hemmorhoid surgery Neurological Surgical History: Reports: Laminectomy, Other (See Below) Other Neurological Surgeries/Procedures: neck surgery Musculoskeletal Surgical History: Reports: Carpal Tunnel, Knee Replacement Social & Family History - Family History Family Medical History: No Pertinent Family History - Tobacco Use Tobacco Use Status *Q: Never Tobacco User - Caffeine Use Caffeine Use: Reports: Coffee - Recreational Drug Use Recreational Drug Use: No - Living Situation & Occupation Living situation: Reports: (For employed [employer]. apparently is currently in [place]) Occupation: Employed H&P Review of Systems - Review of Systems: Review Of Systems: See Below General: Reports: Fever, Chills, Malaise, Weakness, Fatigue HEENT: Denies: Headaches, Sore Throat Pulmonary: Reports: Cough Cardiovascular: Denies: Chest Pain, Orthopnea Gastrointestinal: Denies: Abdominal Pain, Nausea, Vomiting Genitourinary: Denies: Dysuria, Burning Musculoskeletal: Reports: Back Pain Skin: Reports: Rash. Denies: Pruritis Psychiatric: Denies: Depression, Anxiety Neurological: Reports: Weakness. Denies: Confusion, Difficulty Walking Hematologic/Lymphatic: Reports: No Symptoms Immunologic: Reports: No Symptoms Exam - Exam Exam: See Below - Vital Signs Vital Signs: Last Vital Signs Temp 36.9 C 02/28/20 12:52 Pulse 66 02/28/20 12:52 Resp 13 02/28/20 12:52 BP 113/67 02/28/20 12:52 Pulse Ox 92 L 02/28/20 12:52 Weight: 122.47 kg - Exam Quality Assessment: Supplemental Oxygen General: Alert, Oriented, Cooperative, Other (Obese) HEENT: Conjunctiva Clear, EACs Clear, EOMI, Hearing Intact, Mucosa Moist & [place], Nares Patent, Normal Nasal Septum, Posterior Pharynx Clear, Pupils Equal, Pupils Reactive Neck: Supple, Trachea Midline, Other (short and thick) Lungs: Decreased Breath Sounds Cardiovascular: Regular Rate, Regular Rhythm GI/Abdominal Exam: Normal Bowel Sounds, Soft, Non-Tender, No Organomegaly, No Distention, No Abnormal Bruit, Other (obese) (Male) Exam: Deferred, Hernia (umbilical) Rectal (Males) Exam: Deferred Back Exam: Normal Inspection, Decreased Range of Motion Extremities: Normal Inspection, Normal Range of Motion, Non-Tender, No Pedal Edema, Normal Capillary Refill Peripheral Pulses: 2+: Dorsalis Pedis (L), Dorsalis Pedis (R) Skin: Warm, Dry, Intact Neuro Extensive - Mental Status: Oriented x3, Normal Cognition, Memory Intact Neuro Extensive - Motor, Sensory, Reflexes: CN II-XII Intact, Normal Gait Psychiatric: Alert, Normal Affect, Normal Mood - Patient Data Lab Results Last 24 hrs: Laboratory Results - last 24 hr 02/28/20 02/28/20 02/28/20 Range/Units 13:20 13:20 13:20 WBC 9.79 H (4.23-9.07) K/mm3 RBC 5.18 (4.63-6.08) M/mm3 Hgb 14.5 (13.7-17.5) gm/dl Hct 44.2 (40.1-51.0) % MCV 85.3 (79.0-92.2) fl MCH 28.0 (25.7-32.2) pg MCHC 32.8 (32.2-35.5) g/dl RDW Std Deviation 43.3 (35.1-43.9) fL Plt Count 216 (163-337) K/mm3 MPV 10.6 (9.4-12.3) fl Neut % (Auto) 75.1 H (34.0-67.9) % Lymph % (Auto) 12.7 L (21.8-53.1) % [place] % (Auto) 10.3 (5.3-12.2) % Eos % (Auto) 0.8 (0.8-7.0) Baso % (Auto) 0.2 (0.1-1.2) % Neut # (Auto) 7.35 H (1.78-5.38) K/mm3 Lymph # (Auto) 1.24 L (1.32-3.57) K/mm3 [place] # (Auto) 1.01 H (0.30-0.82) K/mm3 Eos # (Auto) 0.08 (0.04-0.54) K/mm3 Baso # (Auto) 0.02 (0.01-0.08) K/mm3 Manual Slide Review Normal smear PT 11.2 (9.7-12.0) SECONDS INR 1.05 APTT 23.7 (21.7-31.4) SECONDS D-Dimer, Quantitative 18.70 H (0.19-0.50) mg/L Sodium 138 (136-145) mEq/L Potassium 3.9 (3.5-5.1) mEq/L Chloride 101 (98-107) mEq/L Carbon Dioxide 26 (21-32) mEq/L Anion Gap 14.9 (5-15) BUN 22 H (7-18) mg/dL Creatinine 1.1 (0.7-1.3) mg/dL Est Cr Clr Drug Dosing 67.50 mL/min Estimated GFR (MDRD) > 60 (>60) mL/min BUN/Creatinine Ratio 20.0 H (14-18) Glucose 128 H (80-115) mg/dL Lactic Acid (0.4-2.0) mmol/L Calcium 8.5 (8.5-10.1) mg/dL Total Bilirubin 0.7 (0.2-1.0) mg/dL AST 29 (15-37) U/L ALT 72 H (16-63) U/L Alkaline Phosphatase 77 (46-116) U/L C-Reactive Protein 5.9 H* (<1.0) mg/dL Total Protein 6.9 (6.4-8.2) g/dl Albumin 2.8 L (3.4-5.0) g/dl Globulin 4.1 gm/dL Albumin/Globulin Ratio 0.7 L (1-2) Urine Color (Yellow) Urine Appearance (Clear) Urine pH (5.0-8.0) Ur Specific [place] (1.005-1.030) Urine Protein (Negative) Urine Glucose (UA) (Negative) Urine Ketones (Negative) Urine Occult Blood (Negative) Urine Nitrite (Negative) Urine Bilirubin (Negative) Urine Urobilinogen (0.2-1.0) Ur Leukocyte Esterase (Negative) Urine RBC (0-5) /hpf Urine WBC (0-5) /hpf Ur Squamous Epith Cells (0-5) /hpf Urine Bacteria (FEW) /hpf Urine Mucus (FEW) /hpf 02/28/20 02/28/20 Range/Units 13:20 15:04 WBC (4.23-9.07) K/mm3 RBC (4.63-6.08) M/mm3 Hgb (13.7-17.5) gm/dl Hct (40.1-51.0) % MCV (79.0-92.2) fl MCH (25.7-32.2) pg MCHC (32.2-35.5) g/dl RDW Std Deviation (35.1-43.9) fL Plt Count (163-337) K/mm3 MPV (9.4-12.3) fl Neut % (Auto) (34.0-67.9) % Lymph % (Auto) (21.8-53.1) % [place] % (Auto) (5.3-12.2) % Eos % (Auto) (0.8-7.0) Baso % (Auto) (0.1-1.2) % Neut # (Auto) (1.78-5.38) K/mm3 Lymph # (Auto) (1.32-3.57) K/mm3 [place] # (Auto) (0.30-0.82) K/mm3 Eos # (Auto) (0.04-0.54) K/mm3 Baso # (Auto) (0.01-0.08) K/mm3 Manual Slide Review PT (9.7-12.0) SECONDS INR APTT (21.7-31.4) SECONDS D-Dimer, Quantitative (0.19-0.50) mg/L Sodium (136-145) mEq/L Potassium (3.5-5.1) mEq/L Chloride (98-107) mEq/L Carbon Dioxide (21-32) mEq/L Anion Gap (5-15) BUN (7-18) mg/dL Creatinine (0.7-1.3) mg/dL Est Cr Clr Drug Dosing mL/min Estimated GFR (MDRD) (>60) mL/min BUN/Creatinine Ratio (14-18) Glucose (80-115) mg/dL Lactic Acid 0.8 (0.4-2.0) mmol/L Calcium (8.5-10.1) mg/dL Total Bilirubin (0.2-1.0) mg/dL AST (15-37) U/L ALT (16-63) U/L Alkaline Phosphatase (46-116) U/L C-Reactive Protein (<1.0) mg/dL Total Protein (6.4-8.2) g/dl Albumin (3.4-5.0) g/dl Globulin gm/dL Albumin/Globulin Ratio (1-2) Urine Color Yellow (Yellow) Urine Appearance Clear (Clear) Urine pH 6.0 (5.0-8.0) Ur Specific [place] 1.020 (1.005-1.030) Urine Protein 1+ H (Negative) Urine Glucose (UA) Negative (Negative) Urine Ketones Negative (Negative) Urine Occult Blood Negative (Negative) Urine Nitrite Negative (Negative) Urine Bilirubin Negative (Negative) Urine Urobilinogen 0.2 (0.2-1.0) Ur Leukocyte Esterase Trace H (Negative) Urine RBC 0-5 (0-5) /hpf Urine WBC 0-5 (0-5) /hpf Ur Squamous Epith Cells 0-5 (0-5) /hpf Urine Bacteria Few (FEW) /hpf Urine Mucus Few (FEW) /hpf Result Diagrams: 02/29/20 05:17 02/29/20 05:17 Sepsis Event Note - Evaluation Sepsis Screening Result: No Definite Risk - Focused Exam Vital Signs: Vital Signs Temp Pulse Resp BP Pulse Ox 02/28/20 12:52 36.9 C 66 13 113/67 92 L Problem List Initiated/Reviewed/Updated: Yes Orders Last 24hrs: Active Orders 24 hr Category Date Time Status Cardiac Monitoring [RC] . DIRECTED Care 02/28/20 13:08 Active Oxygen Therapy [RC] PRN Care 02/28/20 13:08 Active Peripheral IV Care [RC] . DIRECTED Care 02/28/20 13:09 Active Abdomen Pelvis wo Cont [CT] Stat Exams 02/28/20 15:49 Ordered ABG [BLOOD GAS ARTERIAL] [BG] Stat Lab 02/28/20 16:09 Ordered Sodium Chloride 0.9% [Normal Saline] 1,000 ml Med 02/28/20 16:00 Active IV ASDIRECTED Sodium Chloride 0.9% [Saline Flush] Med 02/28/20 13:08 Active 10 ml FLUSH ASDIRECTED PRN Peripheral IV Insertion Adult [OM.PC] Stat Oth 02/28/20 13:08 Ordered Medication Orders Sodium Chloride (Normal Saline) 1,000 mls @ 100 mls/hr IV ASDIRECTED ROBIN Sodium Chloride (Saline Flush) 10 ml FLUSH ASDIRECTED PRN PRN Reason: Keep Vein Open Last Admin: 02/28/20 13:26 Dose: 10 ml Documented by: ASHLEY Assessment/Plan Comment:: This is a 69 yo elderly whit male with past medical hx/o Impaired Vision, HLD, CAD S/p PCTA x3 stents, MARISOL, BPH, DM2, Carpal Tunnel, Left Knee Replacement, Chronic Back Pain S/p Laminectomy, Rash, Umbilical Hernia, Hemorrhoids and Obesity who comes back to us for possible refractory COVID-19 and Bacteremia. Assessment: Possible Refractory COVID-19 Infection Viral Pneumonitis/Atypical Pneumonia Hypoxia with O2 sat in the upper 80s, now on 2L NC Bacteremia 2/2 Gram Negative Hair Leukocytosis with WBC of 9.7 Elevated D-Dimer of 18 Hyperglycemia with DM2, BS of 128 Elevated SHERMAN of 72 Elevated CRP of 5.9 Hypoalbuminemia with Albumin of 2.8 Class II Obese Chronic: Impaired Vision, HLD, CAD S/p PCTA x3 stents, MARISOL, BPH, DM2, Carpal Tunnel, Left Knee Replacement, Chronic Back Pain S/p Laminectomy, Rash, Umbilical Hernia, Hemorrhoids and Obesity Plan: Admit to [facility]. Inflammatory markers. Monitor for sepsis. IV antibiotics with azithromycin and rocephin. Unclear if he would benefit with remdesivir at this point but we do not have anything else to offer for treatment. He has not gotten [employer] or [employer]'s monoclonal antibodies. He has not received the vaccine either. Steroid, Zinx supplement and will check for Vit D level. Accu- check TID AC with LA insulin BID. Hold Metformin. Consider Chest CTA in AM. Give additional 85 mg lovenox for therapeutic dose treatment. Dietary consult for weight management. DVT PPx: Lovenox. GI PPx: H2B. PT/OT to assess and treat. Code status is full. - Mortality Measure Prognosis:: Good
--- NOTE | 2020-02-28 16:41 | CT ---
CT abdomen and pelvis Technique: Multiple axial sections were obtained from above the dome of the diaphragm inferiorly through the pubic symphysis. Intravenous and oral contrast not utilized. Study has been performed as a ureteral stone protocol. Reconstructed coronal and sagittal images were obtained. Comparison: Previous CT abdomen and pelvis study of 05/10/14. Findings: Kidneys show no hydronephrosis. No abnormal calcifications are appreciated within the kidneys. Ureters show no abnormal calcifications. Bladder shows no abnormal calcifications. Visualized lung bases show increased density on both sides which are suspicious for multifocal pneumonia. Noncontrast appearance of the liver and spleen show no focal abnormality. Adrenal glands show no nodule. Pancreas appears within normal limits for noncontrast exam. Gallbladder contains no calcified gallstones. Aorta shows no aneurysm. No retroperitoneal adenopathy or mesenteric abnormalities are seen. No pelvic mass or adenopathy is seen. Prostate calcifications are noted. No free fluid or inflammatory change is appreciated. Minimal increased stool is seen within the colon. Bone window settings were reviewed which show prior lumbar spine surgery. No acute osseous abnormality is appreciated. Impression: 1. Increased density within both lung bases suspicious for multifocal pneumonia. 2. No renal calculi, ureteral dilatation or ureteral stone. 3. Other nonacute findings as noted above. Diagnostic code #3
[2020-02-28] MEDS ORDERED: Polyethylene Glycol 3350 Powder 17 GM Packet PO PRN (18:35)
[2020-02-28] MEDS ORDERED: Temazepam 15 MG Cap PO PRN (18:35)
[2020-02-28] MEDS ORDERED: Promethazine 12.5 MG in Sodium Chloride 0.9% 50 ML IV PRN (18:35)
[2020-02-28] MEDS ORDERED: Ondansetron 4 MG/2 ML SDV IV PRN (18:35)
[2020-02-28] MEDS ORDERED: Albuterol/Ipratropium 3.0-0.5 MG/3 ML Neb Soln NEB PRN (18:35)
[2020-02-28] MEDS ORDERED: HYDROmorphone 0.5 MG/0.5 ML Syringe IVPUSH PRN (18:35)
[2020-02-28] MEDS ORDERED: Acetaminophen 325 MG Tab PO PRN (18:35)
[2020-02-28] MEDS ORDERED: Acetaminophen/oxyCODONE 325-5 MG Tab PO PRN (18:47)
[2020-02-28] MEDS ORDERED: Nitroglycerin 0.4 MG Tab.SL SL PRN (18:47)
[2020-02-28] MEDS ORDERED: guaiFENesin/Dextromethorphan 100-10 MG/5 ML Soln 5 ML Cup PO PRN (18:48)
[2020-02-28] MEDS ORDERED: REMDESIVIR 200 MG in Sodium Chloride 0.9% 250 ML IV ONE ×2 (19:00→21:15)
[2020-02-28] MEDS ORDERED: Enoxaparin 80 MG/0.8 ML Syringe SUBCUT ONE ×2 (19:30)
[2020-02-28 19:41] LABS: VITAMIN D,25-HYDROXY 64.3 ng/ml (30.0-100.0)
[2020-02-28] MEDS ORDERED: hydrALAZINE 20 MG/ML SDV IVPUSH PRN (19:43)
[2020-02-28] MEDS ORDERED: Metoprolol Tartrate 5 MG/5 ML SDV IVPUSH PRN (19:43)
[2020-02-28] MEDS ORDERED: Sodium Chloride 0.9% 1,000 ML IV SCH (19:45)
[2020-02-28] MEDS ORDERED: Azithromycin 500 MG in Sodium Chloride 0.9% 250 ML IV SCH (20:00)
[2020-02-28] MEDS ORDERED: Enoxaparin 100 MG/1 ML Syringe SUBCUT ONE (20:15)
[2020-02-28] MEDS ORDERED: Sodium Chloride 0.9% 250 ML ONE (21:10)
[2020-02-28] MEDS: Famotidine 20 MG Tab PO SCH (21:45)
[2020-02-28] MEDS: Gabapentin 600 MG Tab PO SCH (21:45)
[2020-02-28] MEDS: Sodium Chloride 0.9% 1,000 ML IV SCH (21:46)
[2020-02-29] MEDS ORDERED: Insulin Glarg,Human.Rec.Analog 100 Unit/ML SUBCUT SCH ×2 (06:00→16:00)
[2020-02-29] MEDS: Sodium Chloride 0.9% 1,000 ML IV SCH (07:31)
--- NOTE | 2020-02-29 07:33 | US ---
Bilateral lower extremity deep venous ultrasound: Duplex and color Doppler evaluation was obtained of the right and left common femoral, superficial femoral, popliteal, posterior tibial and peroneal veins. Findings: Blood flow within the left leg is more difficult due to venous stasis most likely from old venous thrombosis. Normal compression, augmentation and phasic flow is otherwise appreciated. Popliteal cyst is noted on the right side measuring 4.3 x 2.3 x 3.0 cm. Impression: 1. Findings within the left leg as noted above which are incidental. 2. No evidence of deep venous thrombosis within either lower extremity. 3. Right popliteal cyst. Diagnostic code #2
[2020-02-29] MEDS ORDERED: Iopamidol 755 Mg/ML 100 ML Bottle IVPUSH ONE (07:46)
--- NOTE | 2020-02-29 07:56 | PCM.PN ---
- General Info Date of Service: 02/29/20 Admission Dx/Problem (Free Text): Covid-19 Infection Subjective Update: He feels a little better. No fever but feels cold. He denies shortness of breath but coughing up brownish sputum. No pleuritic or chest pain. He is eating and drinking fine. No GI complaints. He feels tired due to not been feeling very well for the past few days. Functional Status: Reports: Pain Controlled, Tolerating Diet, Ambulating, Urinating - Review of Systems General: Reports: Fatigue, Chills, Other (tired). Denies: Fever HEENT: Denies: Headaches, Sore Throat Pulmonary: Reports: Cough, Sputum (brown in colore). Denies: Shortness of Breath, Pleuritic Chest Pain Cardiovascular: Denies: Chest Pain, Palpitations, Dyspnea on Exertion, Orthopnea, Edema, Lightheadedness Gastrointestinal: Denies: Abdominal Pain, Decreased Appetite, Diarrhea, Nausea, Vomiting Genitourinary: Denies: Dysuria, Frequency, Burning Musculoskeletal: Denies: Joint Pain Skin: Denies: Bruising, Pruritis, Rash Neurological: Denies: Confusion, Dizziness, Seizure, Difficulty Walking, Weakness, Gait Disturbance Psychiatric: Denies: Depression, Anxiety - Patient Data Vitals - Most Recent: Last Vital Signs Temp 36.4 C 02/29/20 04:48 Pulse 57 L 02/29/20 04:48 Resp 20 02/29/20 04:48 BP 121/84 02/29/20 00:17 Pulse Ox 98 02/29/20 04:48 Weight - Most Recent: 125.055 kg I&O - Last 24 Hours: Intake & Output 02/28/20 02/29/20 02/29/20 22:59 06:59 14:59 Intake Total 1850 Output Total 900 Balance 950 Lab Results Last 24 Hours: Laboratory Results - last 24 hr 02/28/20 02/28/20 02/28/20 Range/Units 13:20 13:20 13:20 WBC 9.79 H (4.23-9.07) K/mm3 RBC 5.18 (4.63-6.08) M/mm3 Hgb 14.5 (13.7-17.5) gm/dl Hct 44.2 (40.1-51.0) % MCV 85.3 (79.0-92.2) fl MCH 28.0 (25.7-32.2) pg MCHC 32.8 (32.2-35.5) g/dl RDW Std Deviation 43.3 (35.1-43.9) fL Plt Count 216 (163-337) K/mm3 MPV 10.6 (9.4-12.3) fl Neut % (Auto) 75.1 H (34.0-67.9) % Lymph % (Auto) 12.7 L (21.8-53.1) % [place] % (Auto) 10.3 (5.3-12.2) % Eos % (Auto) 0.8 (0.8-7.0) Baso % (Auto) 0.2 (0.1-1.2) % Neut # (Auto) 7.35 H (1.78-5.38) K/mm3 Lymph # (Auto) 1.24 L (1.32-3.57) K/mm3 [place] # (Auto) 1.01 H (0.30-0.82) K/mm3 Eos # (Auto) 0.08 (0.04-0.54) K/mm3 Baso # (Auto) 0.02 (0.01-0.08) K/mm3 Manual Slide Review Normal smear ESR (0-15) mm/hr PT 11.2 (9.7-12.0) SECONDS INR 1.05 APTT 23.7 (21.7-31.4) SECONDS D-Dimer, Quantitative 18.70 H (0.19-0.50) mg/L Puncture Site ABG pH (7.35-7.45) ABG pCO2 (35.0-45.0) mmHg ABG pO2 (80.0-100.0) mmHg ABG HCO3 (22.0-26.0) meq/L ABG O2 Saturation (96.0-97.0) % ABG Base Excess (-2-2.0) A-a Gradient mmHg O2 Delivery Device Oxygen Flow Rate FiO2 (21.00-100.00) % Sodium 138 (136-145) mEq/L Potassium 3.9 (3.5-5.1) mEq/L Chloride 101 (98-107) mEq/L Carbon Dioxide 26 (21-32) mEq/L Anion Gap 14.9 (5-15) BUN 22 H (7-18) mg/dL Creatinine 1.1 (0.7-1.3) mg/dL Est Cr Clr Drug Dosing 67.50 mL/min Estimated GFR (MDRD) > 60 (>60) mL/min BUN/Creatinine Ratio 20.0 H (14-18) Glucose 128 H (80-115) mg/dL POC Glucose (80-115) mg/dL Lactic Acid (0.4-2.0) mmol/L Calcium 8.5 (8.5-10.1) mg/dL Magnesium (1.8-2.4) mg/dl Ferritin (26-388) ng/ml Total Bilirubin 0.7 (0.2-1.0) mg/dL AST 29 (15-37) U/L ALT 72 H (16-63) U/L Alkaline Phosphatase 77 (46-116) U/L Lactate Dehydrogenase (85-227) U/L C-Reactive Protein 5.9 H* (<1.0) mg/dL Total Protein 6.9 (6.4-8.2) g/dl Albumin 2.8 L (3.4-5.0) g/dl Globulin 4.1 gm/dL Albumin/Globulin Ratio 0.7 L (1-2) Vitamin D 25-Hydroxy (30.0-100.0) ng/ml Free T4 (0.76-1.46) ng/dL TSH 3rd Generation (0.358-3.74) uIU/mL Urine Color (Yellow) Urine Appearance (Clear) Urine pH (5.0-8.0) Ur Specific [place] (1.005-1.030) Urine Protein (Negative) Urine Glucose (UA) (Negative) Urine Ketones (Negative) Urine Occult Blood (Negative) Urine Nitrite (Negative) Urine Bilirubin (Negative) Urine Urobilinogen (0.2-1.0) Ur Leukocyte Esterase (Negative) Urine RBC (0-5) /hpf Urine WBC (0-5) /hpf Ur Squamous Epith Cells (0-5) /hpf Urine Bacteria (FEW) /hpf Urine Mucus (FEW) /hpf 02/28/20 02/28/20 02/28/20 Range/Units 13:20 13:20 13:20 WBC (4.23-9.07) K/mm3 RBC (4.63-6.08) M/mm3 Hgb (13.7-17.5) gm/dl Hct (40.1-51.0) % MCV (79.0-92.2) fl MCH (25.7-32.2) pg MCHC (32.2-35.5) g/dl RDW Std Deviation (35.1-43.9) fL Plt Count (163-337) K/mm3 MPV (9.4-12.3) fl Neut % (Auto) (34.0-67.9) % Lymph % (Auto) (21.8-53.1) % [place] % (Auto) (5.3-12.2) % Eos % (Auto) (0.8-7.0) Baso % (Auto) (0.1-1.2) % Neut # (Auto) (1.78-5.38) K/mm3 Lymph # (Auto) (1.32-3.57) K/mm3 [place] # (Auto) (0.30-0.82) K/mm3 Eos # (Auto) (0.04-0.54) K/mm3 Baso # (Auto) (0.01-0.08) K/mm3 Manual Slide Review ESR 7 (0-15) mm/hr PT (9.7-12.0) SECONDS INR APTT (21.7-31.4) SECONDS D-Dimer, Quantitative (0.19-0.50) mg/L Puncture Site ABG pH (7.35-7.45) ABG pCO2 (35.0-45.0) mmHg ABG pO2 (80.0-100.0) mmHg ABG HCO3 (22.0-26.0) meq/L ABG O2 Saturation (96.0-97.0) % ABG Base Excess (-2-2.0) A-a Gradient mmHg O2 Delivery Device Oxygen Flow Rate FiO2 (21.00-100.00) % Sodium (136-145) mEq/L Potassium (3.5-5.1) mEq/L Chloride (98-107) mEq/L Carbon Dioxide (21-32) mEq/L Anion Gap (5-15) BUN (7-18) mg/dL Creatinine (0.7-1.3) mg/dL Est Cr Clr Drug Dosing mL/min Estimated GFR (MDRD) (>60) mL/min BUN/Creatinine Ratio (14-18) Glucose (80-115) mg/dL POC Glucose (80-115) mg/dL Lactic Acid 0.8 (0.4-2.0) mmol/L Calcium (8.5-10.1) mg/dL Magnesium (1.8-2.4) mg/dl Ferritin (26-388) ng/ml Total Bilirubin (0.2-1.0) mg/dL AST (15-37) U/L ALT (16-63) U/L Alkaline Phosphatase (46-116) U/L Lactate Dehydrogenase 261 H (85-227) U/L C-Reactive Protein (<1.0) mg/dL Total Protein (6.4-8.2) g/dl Albumin (3.4-5.0) g/dl Globulin gm/dL Albumin/Globulin Ratio (1-2) Vitamin D 25-Hydroxy 64.3 (30.0-100.0) ng/ml Free T4 1.06 (0.76-1.46) ng/dL TSH 3rd Generation 2.064 (0.358-3.74) uIU/mL Urine Color (Yellow) Urine Appearance (Clear) Urine pH (5.0-8.0) Ur Specific [place] (1.005-1.030) Urine Protein (Negative) Urine Glucose (UA) (Negative) Urine Ketones (Negative) Urine Occult Blood (Negative) Urine Nitrite (Negative) Urine Bilirubin (Negative) Urine Urobilinogen (0.2-1.0) Ur Leukocyte Esterase (Negative) Urine RBC (0-5) /hpf Urine WBC (0-5) /hpf Ur Squamous Epith Cells (0-5) /hpf Urine Bacteria (FEW) /hpf Urine Mucus (FEW) /hpf 02/28/20 02/28/20 02/28/20 Range/Units 13:20 15:04 16:35 WBC (4.23-9.07) K/mm3 RBC (4.63-6.08) M/mm3 Hgb (13.7-17.5) gm/dl Hct (40.1-51.0) % MCV (79.0-92.2) fl MCH (25.7-32.2) pg MCHC (32.2-35.5) g/dl RDW Std Deviation (35.1-43.9) fL Plt Count (163-337) K/mm3 MPV (9.4-12.3) fl Neut % (Auto) (34.0-67.9) % Lymph % (Auto) (21.8-53.1) % [place] % (Auto) (5.3-12.2) % Eos % (Auto) (0.8-7.0) Baso % (Auto) (0.1-1.2) % Neut # (Auto) (1.78-5.38) K/mm3 Lymph # (Auto) (1.32-3.57) K/mm3 [place] # (Auto) (0.30-0.82) K/mm3 Eos # (Auto) (0.04-0.54) K/mm3 Baso # (Auto) (0.01-0.08) K/mm3 Manual Slide Review ESR (0-15) mm/hr PT (9.7-12.0) SECONDS INR APTT (21.7-31.4) SECONDS D-Dimer, Quantitative (0.19-0.50) mg/L Puncture Site Lt radial ABG pH 7.42 (7.35-7.45) ABG pCO2 37.3 (35.0-45.0) mmHg ABG pO2 74.0 L (80.0-100.0) mmHg ABG HCO3 24.0 (22.0-26.0) meq/L ABG O2 Saturation 95.5 L (96.0-97.0) % ABG Base Excess 0.3 (-2-2.0) A-a Gradient 50 mmHg O2 Delivery Device Nasal cannula Oxygen Flow Rate 1.5 FiO2 24.00 (21.00-100.00) % Sodium (136-145) mEq/L Potassium (3.5-5.1) mEq/L Chloride (98-107) mEq/L Carbon Dioxide (21-32) mEq/L Anion Gap (5-15) BUN (7-18) mg/dL Creatinine (0.7-1.3) mg/dL Est Cr Clr Drug Dosing mL/min Estimated GFR (MDRD) (>60) mL/min BUN/Creatinine Ratio (14-18) Glucose (80-115) mg/dL POC Glucose (80-115) mg/dL Lactic Acid (0.4-2.0) mmol/L Calcium (8.5-10.1) mg/dL Magnesium (1.8-2.4) mg/dl Ferritin 621 H (26-388) ng/ml Total Bilirubin (0.2-1.0) mg/dL AST (15-37) U/L ALT (16-63) U/L Alkaline Phosphatase (46-116) U/L Lactate Dehydrogenase (85-227) U/L C-Reactive Protein (<1.0) mg/dL Total Protein (6.4-8.2) g/dl Albumin (3.4-5.0) g/dl Globulin gm/dL Albumin/Globulin Ratio (1-2) Vitamin D 25-Hydroxy (30.0-100.0) ng/ml Free T4 (0.76-1.46) ng/dL TSH 3rd Generation (0.358-3.74) uIU/mL Urine Color Yellow (Yellow) Urine Appearance Clear (Clear) Urine pH 6.0 (5.0-8.0) Ur Specific [place] 1.020 (1.005-1.030) Urine Protein 1+ H (Negative) Urine Glucose (UA) Negative (Negative) Urine Ketones Negative (Negative) Urine Occult Blood Negative (Negative) Urine Nitrite Negative (Negative) Urine Bilirubin Negative (Negative) Urine Urobilinogen 0.2 (0.2-1.0) Ur Leukocyte Esterase Trace H (Negative) Urine RBC 0-5 (0-5) /hpf Urine WBC 0-5 (0-5) /hpf Ur Squamous Epith Cells 0-5 (0-5) /hpf Urine Bacteria Few (FEW) /hpf Urine Mucus Few (FEW) /hpf 02/29/20 02/29/20 02/29/20 Range/Units 05:17 05:17 05:17 WBC 6.28 (4.23-9.07) K/mm3 RBC 5.32 (4.63-6.08) M/mm3 Hgb 14.9 (13.7-17.5) gm/dl Hct 45.8 (40.1-51.0) % MCV 86.1 (79.0-92.2) fl MCH 28.0 (25.7-32.2) pg MCHC 32.5 (32.2-35.5) g/dl RDW Std Deviation 44.3 H (35.1-43.9) fL Plt Count 208 (163-337) K/mm3 MPV 10.8 (9.4-12.3) fl Neut % (Auto) 81.6 H (34.0-67.9) % Lymph % (Auto) 9.7 L (21.8-53.1) % [place] % (Auto) 7.5 (5.3-12.2) % Eos % (Auto) 0 L (0.8-7.0) Baso % (Auto) 0.2 (0.1-1.2) % Neut # (Auto) 5.13 (1.78-5.38) K/mm3 Lymph # (Auto) 0.61 L (1.32-3.57) K/mm3 [place] # (Auto) 0.47 (0.30-0.82) K/mm3 Eos # (Auto) 0.00 L (0.04-0.54) K/mm3 Baso # (Auto) 0.01 (0.01-0.08) K/mm3 Manual Slide Review Abnormal smear ESR (0-15) mm/hr PT (9.7-12.0) SECONDS INR APTT (21.7-31.4) SECONDS D-Dimer, Quantitative (0.19-0.50) mg/L Puncture Site ABG pH (7.35-7.45) ABG pCO2 (35.0-45.0) mmHg ABG pO2 (80.0-100.0) mmHg ABG HCO3 (22.0-26.0) meq/L ABG O2 Saturation (96.0-97.0) % ABG Base Excess (-2-2.0) A-a Gradient mmHg O2 Delivery Device Oxygen Flow Rate FiO2 (21.00-100.00) % Sodium 141 (136-145) mEq/L Potassium 4.5 (3.5-5.1) mEq/L Chloride 104 (98-107) mEq/L Carbon Dioxide 28 (21-32) mEq/L Anion Gap 13.5 (5-15) BUN 18 (7-18) mg/dL Creatinine 1.0 (0.7-1.3) mg/dL Est Cr Clr Drug Dosing 74.25 mL/min Estimated GFR (MDRD) > 60 (>60) mL/min BUN/Creatinine Ratio 18.0 (14-18) Glucose 221 H (80-115) mg/dL POC Glucose (80-115) mg/dL Lactic Acid 1.5 (0.4-2.0) mmol/L Calcium 8.2 L (8.5-10.1) mg/dL Magnesium 2.2 (1.8-2.4) mg/dl Ferritin (26-388) ng/ml Total Bilirubin 0.5 (0.2-1.0) mg/dL AST 22 (15-37) U/L ALT 57 (16-63) U/L Alkaline Phosphatase 74 (46-116) U/L Lactate Dehydrogenase (85-227) U/L C-Reactive Protein 17.8 H* (<1.0) mg/dL Total Protein 6.9 (6.4-8.2) g/dl Albumin 2.5 L (3.4-5.0) g/dl Globulin 4.4 gm/dL Albumin/Globulin Ratio 0.6 L (1-2) Vitamin D 25-Hydroxy (30.0-100.0) ng/ml Free T4 (0.76-1.46) ng/dL TSH 3rd Generation (0.358-3.74) uIU/mL Urine Color (Yellow) Urine Appearance (Clear) Urine pH (5.0-8.0) Ur Specific [place] (1.005-1.030) Urine Protein (Negative) Urine Glucose (UA) (Negative) Urine Ketones (Negative) Urine Occult Blood (Negative) Urine Nitrite (Negative) Urine Bilirubin (Negative) Urine Urobilinogen (0.2-1.0) Ur Leukocyte Esterase (Negative) Urine RBC (0-5) /hpf Urine WBC (0-5) /hpf Ur Squamous Epith Cells (0-5) /hpf Urine Bacteria (FEW) /hpf Urine Mucus (FEW) /hpf 02/29/20 Range/Units 07:05 WBC (4.23-9.07) K/mm3 RBC (4.63-6.08) M/mm3 Hgb (13.7-17.5) gm/dl Hct (40.1-51.0) % MCV (79.0-92.2) fl MCH (25.7-32.2) pg MCHC (32.2-35.5) g/dl RDW Std Deviation (35.1-43.9) fL Plt Count (163-337) K/mm3 MPV (9.4-12.3) fl Neut % (Auto) (34.0-67.9) % Lymph % (Auto) (21.8-53.1) % [place] % (Auto) (5.3-12.2) % Eos % (Auto) (0.8-7.0) Baso % (Auto) (0.1-1.2) % Neut # (Auto) (1.78-5.38) K/mm3 Lymph # (Auto) (1.32-3.57) K/mm3 [place] # (Auto) (0.30-0.82) K/mm3 Eos # (Auto) (0.04-0.54) K/mm3 Baso # (Auto) (0.01-0.08) K/mm3 Manual Slide Review ESR (0-15) mm/hr PT (9.7-12.0) SECONDS INR APTT (21.7-31.4) SECONDS D-Dimer, Quantitative (0.19-0.50) mg/L Puncture Site ABG pH (7.35-7.45) ABG pCO2 (35.0-45.0) mmHg ABG pO2 (80.0-100.0) mmHg ABG HCO3 (22.0-26.0) meq/L ABG O2 Saturation (96.0-97.0) % ABG Base Excess (-2-2.0) A-a Gradient mmHg O2 Delivery Device Oxygen Flow Rate FiO2 (21.00-100.00) % Sodium (136-145) mEq/L Potassium (3.5-5.1) mEq/L Chloride (98-107) mEq/L Carbon Dioxide (21-32) mEq/L Anion Gap (5-15) BUN (7-18) mg/dL Creatinine (0.7-1.3) mg/dL Est Cr Clr Drug Dosing mL/min Estimated GFR (MDRD) (>60) mL/min BUN/Creatinine Ratio (14-18) Glucose (80-115) mg/dL POC Glucose 195 H (80-115) mg/dL Lactic Acid (0.4-2.0) mmol/L Calcium (8.5-10.1) mg/dL Magnesium (1.8-2.4) mg/dl Ferritin (26-388) ng/ml Total Bilirubin (0.2-1.0) mg/dL AST (15-37) U/L ALT (16-63) U/L Alkaline Phosphatase (46-116) U/L Lactate Dehydrogenase (85-227) U/L C-Reactive Protein (<1.0) mg/dL Total Protein (6.4-8.2) g/dl Albumin (3.4-5.0) g/dl Globulin gm/dL Albumin/Globulin Ratio (1-2) Vitamin D 25-Hydroxy (30.0-100.0) ng/ml Free T4 (0.76-1.46) ng/dL TSH 3rd Generation (0.358-3.74) uIU/mL Urine Color (Yellow) Urine Appearance (Clear) Urine pH (5.0-8.0) Ur Specific [place] (1.005-1.030) Urine Protein (Negative) Urine Glucose (UA) (Negative) Urine Ketones (Negative) Urine Occult Blood (Negative) Urine Nitrite (Negative) Urine Bilirubin (Negative) Urine Urobilinogen (0.2-1.0) Ur Leukocyte Esterase (Negative) Urine RBC (0-5) /hpf Urine WBC (0-5) /hpf Ur Squamous Epith Cells (0-5) /hpf Urine Bacteria (FEW) /hpf Urine Mucus (FEW) /hpf Ronald Results Last 24 Hours: Microbiology 02/29/20 05:15 Gram Stain - Preliminary Sputum - Expectorated Med Orders - Current: Current Medications Acetaminophen (Tylenol) 650 mg PO Q4H PRN PRN Reason: Pain (Mild 1-3)/fever Albuterol/Ipratropium (Duoneb 3.0-0.5 Mg/3 Ml) 3 ml NEB Q4H PRN PRN Reason: Shortness Of Breath/wheezing Aspirin (Halfprin) 81 mg PO DAILY [facility] Dexamethasone (Dexamethasone) 6 mg PO DAILY [facility] Stop: 03/09/20 09:01 Duloxetine HCl (Cymbalta) 60 mg PO DAILY [facility] Enoxaparin Sodium (Lovenox) 40 mg SUBCUT BID [facility] Famotidine (Pepcid) 20 mg PO BID [facility] Last Admin: 01/15/21 21:45 Dose: 20 mg Documented by: Gabapentin (Neurontin) 600 mg PO TID [facility] Last Admin: 02/28/20 21:45 Dose: 600 mg Documented by: Guaifenesin/Phenylephrine HCl (Robitussin Dm) 10 ml PO Q4H PRN PRN Reason: Cough Hydralazine HCl (Apresoline) 20 mg IVPUSH Q4H PRN PRN Reason: Hypertension Hydromorphone HCl (Dilaudid) 0.5 mg IVPUSH Q2H PRN PRN Reason: Pain (severe 7-10) Sodium Chloride (Normal Saline) 1,000 mls @ 100 mls/hr IV ASDIRECTED [facility] Last Admin: 02/29/20 07:31 Dose: 100 mls/hr Documented by: Promethazine HCl 12.5 mg/ (Sodium Chloride) 50.5 mls @ 100 mls/hr IV Q6H PRN PRN Reason: Nausea/Vomiting Azithromycin 500 mg/ Sodium (Chloride) 250 mls @ 250 mls/hr IV Q24H [facility] Last Admin: 02/28/20 20:25 Dose: 250 mls/hr Documented by: Remdesivir 100 mg/ Sodium (Chloride) 100 mls @ 100 mls/hr IV Q24H [facility] Stop: 03/03/20 18:59 Ceftriaxone Sodium 1 gm/ (Sodium Chloride) 100 mls @ 200 mls/hr IV Q24H [facility] Stop: 03/04/20 13:29 Sodium Chloride (Normal Saline) 1,000 mls @ 100 mls/hr IV ASDIRECTED [facility] Sodium Chloride (Normal Saline) 100 mls @ 75 mls/hr IV ASDIRECTED [facility] Insulin Glargine (Lantus) 10 unit SUBCUT BIDAC [facility] Insulin Human Lispro (Humalog) 0 unit SUBCUT TIDAC [facility]; Protocol Metoprolol Tartrate (Lopressor) 5 mg IVPUSH Q4H PRN PRN Reason: Tachycardia Nitroglycerin (Nitrostat) 0.4 mg SL ASDIRECTED PRN PRN Reason: Chest Pain Ondansetron HCl (Zofran) 4 mg IV Q6H PRN PRN Reason: Nausea/Vomiting Oxycodone/Acetaminophen (Percocet 325-5 Mg) 1 tab PO QID PRN PRN Reason: Pain Polyethylene Glycol (Miralax) 17 gm PO DAILY PRN PRN Reason: Constipation Senna/Docusate Sodium (Senna Plus) 1 tab PO BID PRN PRN Reason: Constipation Simvastatin (Zocor) 20 mg PO DAILY [facility] Sodium Chloride (Saline Flush) 10 ml FLUSH ASDIRECTED PRN PRN Reason: Keep Vein Open Last Admin: 02/28/20 13:26 Dose: 10 ml Documented by: Tamsulosin HCl (Flomax) 0.4 mg PO QPM [facility] Temazepam (Restoril) 15 mg PO BEDTIME PRN PRN Reason: Sleep Zinc Sulfate (Zincate) 220 mg PO DAILY [facility] Discontinued Medications Dexamethasone (Decadron) 10 mg IVPUSH ONETIME ONE Stop: 02/28/20 16:25 Last Admin: 02/28/20 16:36 Dose: 10 mg Documented by: Enoxaparin Sodium (Lovenox) 40 mg SUBCUT ONETIME ONE Stop: 02/28/20 16:24 Last Admin: 02/28/20 16:36 Dose: 40 mg Documented by: Enoxaparin Sodium (Lovenox) 80 mg SUBCUT ONETIME ONE Stop: 02/28/20 19:31 Last Admin: 02/28/20 21:50 Dose: Not Given Documented by: Enoxaparin Sodium (Lovenox) 85 mg SUBCUT ONETIME ONE Stop: 02/28/20 20:16 Last Admin: 02/28/20 21:46 Dose: 85 mg Documented by: Ceftriaxone Sodium 2 gm/ (Sodium Chloride) 100 mls @ 200 mls/hr IV ONETIME ONE Stop: 02/28/20 13:38 Last Admin: 02/28/20 13:26 Dose: 200 mls/hr Documented by: Sodium Chloride (Normal Saline) 500 mls @ 1,000 mls/hr IV .BOLUS ONE Stop: 02/28/20 15:11 Last Infusion: 02/28/20 15:58 Dose: Infused Documented by: Ceftriaxone Sodium 1 gm/ (Sodium Chloride) 100 mls @ 200 mls/hr IV Q24H [facility]IN Stop: 03/04/20 09:01 Remdesivir 200 mg/ Sodium (Chloride) 250 mls @ 250 mls/hr IV ONETIME ONE Stop: 02/28/20 19:59 Last Admin: 02/28/20 21:45 Dose: 250 mls/hr Documented by: Remdesivir 200 mg/ Sodium (Chloride) 250 mls @ 250 mls/hr IV ONETIME ONE Stop: 02/28/20 22:14 Last Admin: 02/28/20 23:39 Dose: Not Given Documented by: Sodium Chloride (Normal Saline) Confirm Administered Dose 250 mls @ as directed .ROUTE .STK-MED ONE Stop: 02/28/20 21:11 Last Admin: 02/28/20 23:39 Dose: Not Given Documented by: Iopamidol (Isovue-370 (76%)) 100 ml IVPUSH ONETIME ONE Stop: 02/29/20 07:47 - Exam Quality Assessment: Supplemental Oxygen General: Alert, Oriented, Cooperative, No Acute Distress, Other (Obese) HEENT: Pupils Equal, Pupils Reactive, EOMI, Mucous Membr. Moist/[place], Other (neck short and thick) Neck: Supple Lungs: Normal Respiratory Effort, Decreased Breath Sounds Cardiovascular: Regular Rate, Regular Rhythm GI/Abdominal Exam: Normal Bowel Sounds, Soft, Non-Tender, No Organomegaly, No Distention, No Abnormal Bruit, Other (Obese) (Male) Exam: Deferred Back Exam: Normal Inspection, Decreased Range of Motion Extremities: Normal Inspection, Normal Range of Motion, Non-Tender, No Pedal Edema, Normal Capillary Refill Peripheral Pulses: 2+: Dorsalis Pedis (L), Dorsalis Pedis (R) Skin: Warm, Dry, Intact Neurological: No New Focal Deficit, Normal Gait Psy/Mental Status: Alert, Normal Affect, Normal Mood Sepsis Event Note - Evaluation Sepsis Screening Result: No Definite Risk - Focused Exam Vital Signs: Vital Signs Temp Pulse Resp BP Pulse Ox 02/29/20 04:48 36.4 C 57 L 20 98 02/29/20 00:17 36.6 C 20 121/84 96 02/28/20 20:22 36.8 C 61 20 141/80 H 94 L - Problem List Review Problem List Initiated/Reviewed/Updated: Yes - My Orders Last 24 Hours: My Active Orders 02/28/20 Dinner Heart Healthy Diet [DIET] 02/28/20 18:35 Height and Weight [RC] 06 Oxygen Therapy [RC] PRN Up ad Maeve [RC] ASDIRECTED VTE/DVT Education [RC] DAILY Vital Signs [RC] Q4HR 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 [CONS] Routine Consult to Jack Winder [CONS] Routine OT Evaluation and Treatment [CONS] Routine PT Evaluation and Treatment [CONS] Routine Respiratory Care Assess and Treatment [CONS] Routine Acetaminophen [TylenoL] 650 mg PO Q4H PRN Albuterol/Ipratropium [DuoNeb 3.0-0.5 MG/3 ML] 3 ml NEB Q4H PRN Docusate Sodium/Sennosides [Senna Plus] 1 tab PO BID PRN HYDROmorphone [Dilaudid] 0.5 mg IVPUSH Q2H PRN Ondansetron [Zofran] 4 mg IV Q6H PRN Promethazine [Phenergan] 12.5 mg Sodium Chloride 0.9% [Normal Saline] 50 ml IV Q6H Temazepam [Restoril] 15 mg PO BEDTIME PRN polyethylene glycoL 3350 [MiraLAX] 17 gm PO DAILY PRN Resuscitation Status Routine 02/28/20 18:36 Intake and Output [RC] 04,16 02/28/20 18:38 RT Aerosol Therapy [RC] ASDIRECTED 02/28/20 18:47 Acetaminophen/oxyCODONE [Percocet 325-5 MG] 1 tab PO QID PRN Nitroglycerin [Nitrostat] 0.4 mg SL ASDIRECTED PRN 02/28/20 18:48 Flutter Valve Therapy [RT Chest Physiotherapy] [RC] ASDIRECTED Incentive Spirometry [RT Incentive Spirometry] [RC] ASDIRECTED Dextromethorphan/guaiFENesin [Robitussin DM] 10 ml PO Q4H PRN 02/28/20 19:43 Metoprolol Tartrate [Lopressor] 5 mg IVPUSH Q4H PRN hydrALAZINE [Apresoline] 20 mg IVPUSH Q4H PRN 02/28/20 19:45 Sodium Chloride 0.9% [Normal Saline] 1,000 ml IV ASDIRECTED 02/28/20 20:00 Azithromycin [Zithromax] 500 mg Sodium Chloride 0.9% [Normal Saline (AdvBag)] 250 ml IV Q24H 02/28/20 21:00 Famotidine [Pepcid] 20 mg PO BID Gabapentin [Neurontin] 600 mg PO TID 02/29/20 05:15 CULTURE SPUTUM + SMEAR [RM] Stat 02/29/20 06:00 Chest PE [Ang Chest] [CT] Urgent Insulin Glarg,Human.Rec.Analog [LantUS] 10 unit SUBCUT BIDAC 02/29/20 06:14 Blood Glucose Check, Bedside [RC] QIDACANDBED 02/29/20 Breakfast ADA Diabetic [[employer] Diet] [DIET] Insulin Lispro [HumaLOG] See Protocol SUBCUT TIDAC 02/29/20 08:00 Sodium Chloride 0.9% [Normal Saline] 100 ml IV ASDIRECTED 02/29/20 09:00 Aspirin [Halfprin] 81 mg PO DAILY DULoxetine [Cymbalta] 60 mg PO DAILY Enoxaparin [Lovenox] 40 mg SUBCUT BID Simvastatin [Zocor] 20 mg PO DAILY Zinc Sulfate [Zincate] 220 mg PO DAILY dexAMETHasone 6 mg PO DAILY 02/29/20 13:00 cefTRIAXone [Rocephin] 1 gm Sodium Chloride 0.9% [Normal Saline] 100 ml IV Q24H 02/29/20 18:00 Remdesivir 100 mg Sodium Chloride 0.9% [Normal Saline] 100 ml IV Q24H Tamsulosin [Flomax] 0.4 mg PO QPM 03/01/20 05:00 D-DIMER QUANTITATIVE [COAG] Routine 03/01/20 05:11 C-REACTIVE PROTEIN [CHEM] AM CBC WITH AUTO DIFF [HEME] AM COMPREHENSIVE METABOLIC PN,CMP [CHEM] AM MAGNESIUM [CHEM] AM 03/02/20 05:11 C-REACTIVE PROTEIN [CHEM] AM CBC WITH AUTO DIFF [HEME] AM COMPREHENSIVE METABOLIC PN,CMP [CHEM] AM MAGNESIUM [CHEM] AM 03/03/20 05:11 C-REACTIVE PROTEIN [CHEM] AM CBC WITH AUTO DIFF [HEME] AM COMPREHENSIVE METABOLIC PN,CMP [CHEM] AM MAGNESIUM [CHEM] AM 03/04/20 05:11 C-REACTIVE PROTEIN [CHEM] AM CBC WITH AUTO DIFF [HEME] AM COMPREHENSIVE METABOLIC PN,CMP [CHEM] AM MAGNESIUM [CHEM] AM 03/05/20 05:11 C-REACTIVE PROTEIN [CHEM] AM CBC WITH AUTO DIFF [HEME] AM COMPREHENSIVE METABOLIC PN,CMP [CHEM] AM MAGNESIUM [CHEM] AM 03/06/20 05:11 C-REACTIVE PROTEIN [CHEM] AM CBC WITH AUTO DIFF [HEME] AM COMPREHENSIVE METABOLIC PN,CMP [CHEM] AM MAGNESIUM [CHEM] AM - Plan Plan:: This is a 69 yo elderly whit male with past medical hx/o Impaired Vision, HLD, CAD S/p PCTA x3 stents, MARISOL, BPH, DM2, Carpal Tunnel, Left Knee Replacement, Chronic Back Pain S/p Laminectomy, Rash, Umbilical Hernia, Hemorrhoids and Obesity who comes back to us for possible refractory COVID-19 and Bacteremia. Assessment: Possible Refractory COVID-19 Infection * Diagnosed on the via drive thru * Confirmed positive test from the [facility] * Never received monoclonal antibodies: Erica or Regeneron * Has not received the Covid-19 shot * Chest CTA this shows multifocal pneumonia * Vit D level is wnl * Continue covid-19 regime: IV antibiotics-azithromycin and rocephin, steroid, Veklury 5 day course, and zinc supplement * Encourage to use IS and FV as directed and ambulate inside his room as many times as he can Viral Pneumonitis/Atypical/Multifocal Pneumonia * Recent diagnosis of Covid-19 * Cannot r/o refractory Covid-19 CRP is 5.9-->now 17.8 * IV Rocephin and Azithromycin to cover for atypical organisms * Sputum Cx and PRN decongestant/expectorant * Encourage to use IS and FV as directed Hypoxia with O2 sat in the upper 80s, now on 2L NC * 2/2 Above * He remains on 2L sating adequately Bacteremia 2/2 Gram Negative Hair from BC taken on 02/26/2020 * He has been receiving IV azithromycin and rocephin * Cx shows E. coli sensitive to rocephin * Repeat blood culture Monday Elevated D-Dimer of 18 and PE * 2/2 PE noted on Chest CTA * Likely Covid-19 induced * Received therapeutic dose of Lovenox last night * We will switch to Eliquis 10 mg po BID for 7 days and then 5 mg po BID thereafter, first dose this AM Hyperglycemia with DM2, BS of 128 * Has diabetes * Bs not controlled due to steroid * We will adjust insulin regimen Elevated CRP of 5.9-->17.8 * Treatment as above Hypoalbuminemia with Albumin of 2.8->2.5 Class II Obese * Dietary consult for weigh management * BMI of 38.5 Bradycardia with HR in the 40s-50s * He is not on rate control or anti-arrhythmic agents * Did not get PRN Lopressor last night- will d/c it * No chest pain * Will obtain 2D echo Monday Resolved: Leukocytosis with WBC of 9.7, resolved Elevated ALT of 72-->57,resolved Chronic: Impaired Vision, HLD, CAD S/p PCTA x3 stents, MARISOL, BPH, DM2, Carpal Tunnel, Left Knee Replacement, Chronic Back Pain S/p Laminectomy, Rash, Umbil ical Hernia, Hemorrhoids and Obesity Plan: Continue current treatment. Inflammatory markers. Monitor for sepsis. IV antibiotics with azithromycin and rocephin. Accu-check TID AC with LA insulin BID. Lantus to 13 units subQ BID. Eliquis for DVT prophylaxis and treatment of PE. Dietary consult for weight management. GI PPx: H2B. PT/OT to assess and treat. Code status is full. Goal for treatment: Ambulate as many times as he can and use IS and FV as directed. LOS > 96 hrs, he needs to complete 5 day course of Veklury.
[2020-02-29] MEDS ORDERED: Sodium Chloride 0.9% 100 ML IV SCH (08:00)
[2020-02-29] MEDS: Sodium Chloride 0.9% 10 ML Syringe FLUSH PRN (08:19)
--- NOTE | 2020-02-29 08:49 | CT ---
CT chest Technique: Multiple axial sections were obtained from above the lung apices inferiorly through the lung bases. Intravenous contrast was utilized. Study performed as a pulmonary angiogram protocol. Findings: Small filling defects are identified within the segmental and subsegmental right lower lobe pulmonary artery compatible with small pulmonary embolism. Minimal filling defect is seen within the subsegmental branch within the left upper lung compatible with small pulmonary emboli. No additional pulmonary embolism is appreciated. Mediastinum shows normal-appearing lymph nodes. No axillary adenopathy is appreciated. No pericardial thickening is seen. The small portion of visualized upper abdominal structures show nothing definitely acute. Small peripheral areas of parenchymal densities are seen within the left upper lung. More prominent density is noted within the lingula and right middle lobe and within both lower lobes. Impression: 1. Scattered areas of parenchymal density which most likely represent areas of multifocal pneumonia. Please rule out COVID disease. 2. Small areas of pulmonary emboli within the segmental and subsegmental branch of the right lower lung and within the sub-segmental branch of the left upper lung. Diagnostic code #5
[2020-02-29] MEDS ORDERED: Zinc Sulfate 220 MG Cap PO SCH (09:00)
[2020-02-29] MEDS ORDERED: Enoxaparin 40 MG/0.4 ML Syringe SUBCUT SCH (09:00)
[2020-02-29] MEDS ORDERED: Aspirin 81 MG Tab.EC PO SCH (09:00)
[2020-02-29] MEDS ORDERED: Dexamethasone 4 MG Tab PO SCH (09:00)
[2020-02-29] MEDS ORDERED: DULoxetine 30 MG Cap PO SCH (09:00)
[2020-02-29] MEDS ORDERED: Simvastatin 20 MG Tab PO SCH (09:00)
[2020-02-29] MEDS ORDERED: cefTRIAXone 1 GM in Sodium Chloride 0.9% 100 ML IV SCH ×2 (09:00→13:00)
[2020-02-29] MEDS: Famotidine 20 MG Tab PO SCH (09:24)
[2020-02-29] MEDS: Gabapentin 600 MG Tab PO SCH ×2 (09:25→16:00)
[2020-02-29] MEDS ORDERED: Apixaban 5 MG Tab PO ONE (10:00)
[2020-02-29] MEDS ORDERED: REMDESIVIR 100 MG in Sodium Chloride 0.9% 100 ML IV SCH (18:00)
[2020-02-29] MEDS ORDERED: Tamsulosin 0.4 MG Cap.ER PO SCH (18:00)
[2020-02-29] MEDS ORDERED: Atropine 0.4 MG/ML SDV IVPUSH ONE (18:28)
[2020-02-29] MEDS ORDERED: Atropine 0.1 MG/ML 10 ML Syringe ONE (18:36)
[2020-02-29] MEDS ORDERED: Atropine 0.1 MG/ML 10 ML Syringe IVPUSH ONE ×2 (18:46→18:48)
--- NOTE | 2020-02-29 19:02 | PCM.DCSUM1 ---
Discharge Summary - Hospital Course Brief History: This is a 69 yo elderly white male with past medical hx/o Impaired Vision, HLD, CAD S/p PCTA x3 stents, MARISOL, BPH, DM2, Carpal Tunnel, Left Knee Replacement, Chronic Back Pain S/p Laminectomy, Rash, Umbilical Hernia, Hemorrhoids and Obesity who comes back to ED for possible refractory COVID-19 and Bacteremia. He was diagnosed with the viral infection back on February [address] He came out of quarantine but started to fall ill a couple of days ago. Diagnosis: Stroke: No Modified Bobby Scale: No Symptoms at All Modified Bobby Scale Score: 0 - Discharge Data Discharge Date: 02/29/20 Discharge Disposition: Home, Self-Care Condition: Fair - Referral to Home Health Primary Care Physician: Gelacio Lloyd MD - Patient Summary/Data Operative Procedure(s) Performed: None Complications: None Consults: Consultations 02/28/20 18:35 Consult to Case Management/Test And Balance Engineer [CONS] Routine Consult to Locomotive Engineer [CONS] Routine OT Evaluation and Treatment [CONS] Routine PT Evaluation and Treatment [CONS] Routine Respiratory Care Assess and Treatment [CONS] Routine Recommended Follow-up Testing/Procedures: 2D echo Hospital Course: Patient was primarily admitted for treatment for worsening COVID-19 infection as well as Bacteremia from E.coli. Unfortunately, he started to henrique down in the 50s and most recently in low 40s to upper 30s. His serial EKGs revealed sinus bradycardia with HR in the low 40s. His troponin x 1 was negative. He was not having chest pain but he has active COVID-19 infection and carries a hx/o diabetes. He was unresponsive to a one time dose of 0.5 mg atropin but did respond with heart rates in the 80s after the second dose of 0.5 mg atropin. However it was not long before he started to trend down in the 60s. Patient had an 8-seconds ran of ventricular tachycardia on telemetry noted this afternoon. His blood pressure was otherwise stable. He had been receiving intravenous antibiotic for viral pneumonitis/atypical pneumonia as well as eliquis for pulmonary emboli diagnosed on chest CTA. He was negative for DVT on duplex ultrasound. At this point, we felt he has an underlying sick sinus syndrome and best be evaluated and managed at a nearest tertiary level. His case was discussed with Dr. Sepulveda, who accepted the patient under the hospitalist matthew webber. Right after the transfer call, we immediately called his daughter Susan in [place] to let her know about him going to [place] for upper level of care. - Patient Instructions Diet: Heart Healthy Diet, Diabetic Diet Activity: As Tolerated Driving: Do Not Drive Showering/Bathing: May Shower Notify Provider of: Fever, Increased Pain, Swelling and Redness, Drainage, Nausea and/or Vomiting - Discharge Plan *PRESCRIPTION DRUG MONITORING PROGRAM REVIEWED*: Not Applicable *COPY OF PRESCRIPTION DRUG MONITORING REPORT IN PATIENT ANA MARIA: Not Applicable Home Medications: Home Meds DULoxetine [Cymbalta] 60 mg PO DAILY 05/10/14 [History] Pravastatin [Pravachol] 40 mg PO DAILY 05/10/14 [History] Tamsulosin HCl [Flomax] 0.4 mg PO QPM #14 cap.er.24h 05/10/14 [Rx] metFORMIN HCl [Metformin HCl] 500 mg PO BID 05/10/14 [History] Aspirin [Ecotrin] 81 mg PO DAILY 08/24/15 [History] Gabapentin [Neurontin] 600 mg PO TID 02/26/20 [History] Nitroglycerin 1 tab SL ASDIRECTED PRN 02/26/20 [History] oxyCODONE HCl/Acetaminophen [Oxycodone-Acetaminophen 5-325] 1 tab PO QID PRN 02/26/20 [History] Azithromycin [Zithromax] 250 mg PO DAILY #6 tablet 02/27/20 [Rx] Oxygen Therapy Mode: CPAP Oxygen Flow Rate (L/min): 2 Referrals: Gelacio Lloyd MD [Primary Care Provider] - - Discharge Summary/Plan Comment DC Time >30 min.: Yes Discharge Summary/Plan Comment: Transfer to [facility] for further cardiac care under the services of Dr. Mcneill. - General Info Date of Service: 02/29/20 Admission Dx/Problem (Free Text: Covid-19 Infection Subjective Update: He feels a little better. No fever but feels cold. He denies shortness of breath but coughing up brownish sputum. No pleuritic or chest pain. He is eating and drinking fine. No GI complaints. He feels tired due to not been feeling very well for the past few days. - Patient Data Vitals - Most Recent: Last Vital Signs Temp 36.4 C 02/29/20 15:47 Pulse 44 L 02/29/20 15:47 Resp 18 02/29/20 15:47 BP 126/74 02/29/20 15:47 Pulse Ox 95 02/29/20 15:47 Weight - Most Recent: 125.055 kg I&O - Last 24 hours: Intake & Output 02/29/20 02/29/20 02/29/20 06:59 14:59 22:59 Intake Total 1850 2420 Output Total 900 625 Balance 950 1795 Lab Results - Last 24 hrs: Laboratory Results - last 24 hr 02/28/20 02/28/20 02/28/20 Range/Units 13:20 13:20 13:20 WBC (4.23-9.07) K/mm3 RBC (4.63-6.08) M/mm3 Hgb (13.7-17.5) gm/dl Hct (40.1-51.0) % MCV (79.0-92.2) fl MCH (25.7-32.2) pg MCHC (32.2-35.5) g/dl RDW Std Deviation (35.1-43.9) fL Plt Count (163-337) K/mm3 MPV (9.4-12.3) fl Neut % (Auto) (34.0-67.9) % Lymph % (Auto) (21.8-53.1) % Saunders % (Auto) (5.3-12.2) % Eos % (Auto) (0.8-7.0) Baso % (Auto) (0.1-1.2) % Neut # (Auto) (1.78-5.38) K/mm3 Lymph # (Auto) (1.32-3.57) K/mm3 Saunders # (Auto) (0.30-0.82) K/mm3 Eos # (Auto) (0.04-0.54) K/mm3 Baso # (Auto) (0.01-0.08) K/mm3 Manual Slide Review ESR 7 (0-15) mm/hr Sodium (136-145) mEq/L Potassium (3.5-5.1) mEq/L Chloride (98-107) mEq/L Carbon Dioxide (21-32) mEq/L Anion Gap (5-15) BUN (7-18) mg/dL Creatinine (0.7-1.3) mg/dL Est Cr Clr Drug Dosing mL/min Estimated GFR (MDRD) (>60) mL/min BUN/Creatinine Ratio (14-18) Glucose (80-115) mg/dL POC Glucose (80-115) mg/dL Lactic Acid (0.4-2.0) mmol/L Calcium (8.5-10.1) mg/dL Magnesium (1.8-2.4) mg/dl Ferritin 621 H (26-388) ng/ml Total Bilirubin (0.2-1.0) mg/dL AST (15-37) U/L ALT (16-63) U/L Alkaline Phosphatase (46-116) U/L Lactate Dehydrogenase 261 H (85-227) U/L Troponin I (0.00-0.056) ng/mL C-Reactive Protein (<1.0) mg/dL NT-Pro-B Natriuret Pep (0-125) pg/mL Total Protein (6.4-8.2) g/dl Albumin (3.4-5.0) g/dl Globulin gm/dL Albumin/Globulin Ratio (1-2) Vitamin D 25-Hydroxy 64.3 (30.0-100.0) ng/ml Free T4 1.06 (0.76-1.46) ng/dL TSH 3rd Generation 2.064 (0.358-3.74) uIU/mL 02/29/20 02/29/20 02/29/20 Range/Units 05:17 05:17 05:17 WBC 6.28 (4.23-9.07) K/mm3 RBC 5.32 (4.63-6.08) M/mm3 Hgb 14.9 (13.7-17.5) gm/dl Hct 45.8 (40.1-51.0) % MCV 86.1 (79.0-92.2) fl MCH 28.0 (25.7-32.2) pg MCHC 32.5 (32.2-35.5) g/dl RDW Std Deviation 44.3 H (35.1-43.9) fL Plt Count 208 (163-337) K/mm3 MPV 10.8 (9.4-12.3) fl Neut % (Auto) 81.6 H (34.0-67.9) % Lymph % (Auto) 9.7 L (21.8-53.1) % Saunders % (Auto) 7.5 (5.3-12.2) % Eos % (Auto) 0 L (0.8-7.0) Baso % (Auto) 0.2 (0.1-1.2) % Neut # (Auto) 5.13 (1.78-5.38) K/mm3 Lymph # (Auto) 0.61 L (1.32-3.57) K/mm3 Saunders # (Auto) 0.47 (0.30-0.82) K/mm3 Eos # (Auto) 0.00 L (0.04-0.54) K/mm3 Baso # (Auto) 0.01 (0.01-0.08) K/mm3 Manual Slide Review Abnormal smear ESR (0-15) mm/hr Sodium 141 (136-145) mEq/L Potassium 4.5 (3.5-5.1) mEq/L Chloride 104 (98-107) mEq/L Carbon Dioxide 28 (21-32) mEq/L Anion Gap 13.5 (5-15) BUN 18 (7-18) mg/dL Creatinine 1.0 (0.7-1.3) mg/dL Est Cr Clr Drug Dosing 74.25 mL/min Estimated GFR (MDRD) > 60 (>60) mL/min BUN/Creatinine Ratio 18.0 (14-18) Glucose 221 H (80-115) mg/dL POC Glucose (80-115) mg/dL Lactic Acid 1.5 (0.4-2.0) mmol/L Calcium 8.2 L (8.5-10.1) mg/dL Magnesium 2.2 (1.8-2.4) mg/dl Ferritin (26-388) ng/ml Total Bilirubin 0.5 (0.2-1.0) mg/dL AST 22 (15-37) U/L ALT 57 (16-63) U/L Alkaline Phosphatase 74 (46-116) U/L Lactate Dehydrogenase (85-227) U/L Troponin I (0.00-0.056) ng/mL C-Reactive Protein 17.8 H* (<1.0) mg/dL NT-Pro-B Natriuret Pep (0-125) pg/mL Total Protein 6.9 (6.4-8.2) g/dl Albumin 2.5 L (3.4-5.0) g/dl Globulin 4.4 gm/dL Albumin/Globulin Ratio 0.6 L (1-2) Vitamin D 25-Hydroxy (30.0-100.0) ng/ml Free T4 (0.76-1.46) ng/dL TSH 3rd Generation (0.358-3.74) uIU/mL 02/29/20 02/29/20 02/29/20 Range/Units 07:05 11:12 14:51 WBC (4.23-9.07) K/mm3 RBC (4.63-6.08) M/mm3 Hgb (13.7-17.5) gm/dl Hct (40.1-51.0) % MCV (79.0-92.2) fl MCH (25.7-32.2) pg MCHC (32.2-35.5) g/dl RDW Std Deviation (35.1-43.9) fL Plt Count (163-337) K/mm3 MPV (9.4-12.3) fl Neut % (Auto) (34.0-67.9) % Lymph % (Auto) (21.8-53.1) % Saunders % (Auto) (5.3-12.2) % Eos % (Auto) (0.8-7.0) Baso % (Auto) (0.1-1.2) % Neut # (Auto) (1.78-5.38) K/mm3 Lymph # (Auto) (1.32-3.57) K/mm3 Saunders # (Auto) (0.30-0.82) K/mm3 Eos # (Auto) (0.04-0.54) K/mm3 Baso # (Auto) (0.01-0.08) K/mm3 Manual Slide Review ESR (0-15) mm/hr Sodium (136-145) mEq/L Potassium (3.5-5.1) mEq/L Chloride (98-107) mEq/L Carbon Dioxide (21-32) mEq/L Anion Gap (5-15) BUN (7-18) mg/dL Creatinine (0.7-1.3) mg/dL Est Cr Clr Drug Dosing mL/min Estimated GFR (MDRD) (>60) mL/min BUN/Creatinine Ratio (14-18) Glucose (80-115) mg/dL POC Glucose 195 H 213 H (80-115) mg/dL Lactic Acid (0.4-2.0) mmol/L Calcium (8.5-10.1) mg/dL Magnesium 2.1 (1.8-2.4) mg/dl Ferritin (26-388) ng/ml Total Bilirubin (0.2-1.0) mg/dL AST (15-37) U/L ALT (16-63) U/L Alkaline Phosphatase (46-116) U/L Lactate Dehydrogenase (85-227) U/L Troponin I (0.00-0.056) ng/mL C-Reactive Protein (<1.0) mg/dL NT-Pro-B Natriuret Pep (0-125) pg/mL Total Protein (6.4-8.2) g/dl Albumin (3.4-5.0) g/dl Globulin gm/dL Albumin/Globulin Ratio (1-2) Vitamin D 25-Hydroxy (30.0-100.0) ng/ml Free T4 (0.76-1.46) ng/dL TSH 3rd Generation (0.358-3.74) uIU/mL 02/29/20 02/29/20 02/29/20 Range/Units 14:51 14:51 17:07 WBC (4.23-9.07) K/mm3 RBC (4.63-6.08) M/mm3 Hgb (13.7-17.5) gm/dl Hct (40.1-51.0) % MCV (79.0-92.2) fl MCH (25.7-32.2) pg MCHC (32.2-35.5) g/dl RDW Std Deviation (35.1-43.9) fL Plt Count (163-337) K/mm3 MPV (9.4-12.3) fl Neut % (Auto) (34.0-67.9) % Lymph % (Auto) (21.8-53.1) % Saunders % (Auto) (5.3-12.2) % Eos % (Auto) (0.8-7.0) Baso % (Auto) (0.1-1.2) % Neut # (Auto) (1.78-5.38) K/mm3 Lymph # (Auto) (1.32-3.57) K/mm3 Saunders # (Auto) (0.30-0.82) K/mm3 Eos # (Auto) (0.04-0.54) K/mm3 Baso # (Auto) (0.01-0.08) K/mm3 Manual Slide Review ESR (0-15) mm/hr Sodium (136-145) mEq/L Potassium (3.5-5.1) mEq/L Chloride (98-107) mEq/L Carbon Dioxide (21-32) mEq/L Anion Gap (5-15) BUN (7-18) mg/dL Creatinine (0.7-1.3) mg/dL Est Cr Clr Drug Dosing mL/min Estimated GFR (MDRD) (>60) mL/min BUN/Creatinine Ratio (14-18) Glucose (80-115) mg/dL POC Glucose 231 H (80-115) mg/dL Lactic Acid (0.4-2.0) mmol/L Calcium (8.5-10.1) mg/dL Magnesium (1.8-2.4) mg/dl Ferritin (26-388) ng/ml Total Bilirubin (0.2-1.0) mg/dL AST (15-37) U/L ALT (16-63) U/L Alkaline Phosphatase (46-116) U/L Lactate Dehydrogenase (85-227) U/L Troponin I < 0.017 (0.00-0.056) ng/mL C-Reactive Protein (<1.0) mg/dL NT-Pro-B Natriuret Pep 357 H (0-125) pg/mL Total Protein (6.4-8.2) g/dl Albumin (3.4-5.0) g/dl Globulin gm/dL Albumin/Globulin Ratio (1-2) Vitamin D 25-Hydroxy (30.0-100.0) ng/ml Free T4 (0.76-1.46) ng/dL TSH 3rd Generation (0.358-3.74) uIU/mL [facility] Results - Last 24 hrs: Microbiology 02/28/20 18:15 Urine Culture - Preliminary Urine, Bladder Gram Positive Cocci 02/29/20 05:15 Gram Stain - Preliminary Sputum - Expectorated Med Orders - Current: Current Medications Acetaminophen (Tylenol) 650 mg PO Q4H PRN PRN Reason: Pain (Mild 1-3)/fever Albuterol/Ipratropium (Duoneb 3.0-0.5 Mg/3 Ml) 3 ml NEB Q4H PRN PRN Reason: Shortness Of Breath/wheezing Apixaban (Eliquis) 10 mg PO BID [facility] Stop: 03/03/20 21:01 Aspirin (Halfprin) 81 mg PO DAILY [facility] Last Admin: 02/29/20 09:25 Dose: 81 mg Documented by: Dexamethasone (Dexamethasone) 6 mg PO DAILY [facility] Stop: 03/09/20 09:01 Last Admin: 02/29/20 09:25 Dose: 6 mg Documented by: Duloxetine HCl (Cymbalta) 60 mg PO DAILY [facility] Last Admin: 02/29/20 09:24 Dose: 60 mg Documented by: Famotidine (Pepcid) 20 mg PO BID [facility] Last Admin: 02/29/20 09:24 Dose: 20 mg Documented by: Gabapentin (Neurontin) 600 mg PO TID [facility] Last Admin: 02/29/20 16:00 Dose: 600 mg Documented by: Guaifenesin/Phenylephrine HCl (Robitussin Dm) 10 ml PO Q4H PRN PRN Reason: Cough Hydralazine HCl (Apresoline) 20 mg IVPUSH Q4H PRN PRN Reason: Hypertension Hydromorphone HCl (Dilaudid) 0.5 mg IVPUSH Q2H PRN PRN Reason: Pain (severe 7-10) Promethazine HCl 12.5 mg/ (Sodium Chloride) 50.5 mls @ 100 mls/hr IV Q6H PRN PRN Reason: Nausea/Vomiting Azithromycin 500 mg/ Sodium (Chloride) 250 mls @ 250 mls/hr IV Q24H [facility] Last Admin: 02/28/20 20:25 Dose: 250 mls/hr Documented by: Remdesivir 100 mg/ Sodium (Chloride) 100 mls @ 100 mls/hr IV Q24H [facility] Stop: 03/03/20 18:59 Last Admin: 02/29/20 17:44 Dose: 100 mls/hr Documented by: Ceftriaxone Sodium 1 gm/ (Sodium Chloride) 100 mls @ 200 mls/hr IV Q24H [facility] Stop: 03/04/20 13:29 Last Admin: 02/29/20 12:13 Dose: 200 mls/hr Documented by: Sodium Chloride (Normal Saline) 1,000 mls @ 100 mls/hr IV ASDIRECTED [facility] Last Admin: 02/29/20 17:53 Dose: 100 mls/hr Documented by: Insulin Glargine (Lantus) 13 unit SUBCUT BIDAC [facility] Last Admin: 02/29/20 17:39 Dose: 13 units Documented by: Insulin Human Lispro (Humalog) 0 unit SUBCUT TIDAC [facility]; Protocol Last Admin: 02/29/20 17:38 Dose: 4 units Documented by: Nitroglycerin (Nitrostat) 0.4 mg SL ASDIRECTED PRN PRN Reason: Chest Pain Ondansetron HCl (Zofran) 4 mg IV Q6H PRN PRN Reason: Nausea/Vomiting Oxycodone/Acetaminophen (Percocet 325-5 Mg) 1 tab PO QID PRN PRN Reason: Pain Polyethylene Glycol (Miralax) 17 gm PO DAILY PRN PRN Reason: Constipation Saccharomyces Boulardii (Florastor) 250 mg PO BID [facility] Senna/Docusate Sodium (Senna Plus) 1 tab PO BID PRN PRN Reason: Constipation Simvastatin (Zocor) 20 mg PO DAILY [facility] Last Admin: 02/29/20 09:24 Dose: 20 mg Documented by: Sodium Chloride (Saline Flush) 10 ml FLUSH ASDIRECTED PRN PRN Reason: Keep Vein Open Last Admin: 02/29/20 08:19 Dose: 10 ml Documented by: Tamsulosin HCl (Flomax) 0.4 mg PO QPM [facility] Last Admin: 02/29/20 17:39 Dose: 0.4 mg Documented by: Temazepam (Restoril) 15 mg PO BEDTIME PRN PRN Reason: Sleep Zinc Sulfate (Zincate) 220 mg PO DAILY [facility] Last Admin: 02/29/20 09:25 Dose: 220 mg Documented by: Discontinued Medications Apixaban (Eliquis) 10 mg PO ONETIME ONE Stop: 02/29/20 10:01 Last Admin: 02/29/20 12:16 Dose: 10 mg Documented by: Atropine Sulfate (Atropine) 0.5 mg IVPUSH ONETIME ONE Stop: 02/29/20 18:29 Atropine Sulfate (Atropine 0.1 Mg/Ml) Confirm Administered Dose 1 mg .ROUTE .STK-MED ONE Stop: 02/29/20 18:37 Dexamethasone (Decadron) 10 mg IVPUSH ONETIME ONE Stop: 02/28/20 16:25 Last Admin: 02/28/20 16:36 Dose: 10 mg Documented by: Enoxaparin Sodium (Lovenox) 40 mg SUBCUT ONETIME ONE Stop: 02/28/20 16:24 Last Admin: 02/28/20 16:36 Dose: 40 mg Documented by: Enoxaparin Sodium (Lovenox) 40 mg SUBCUT BID [facility] Last Admin: 02/29/20 09:26 Dose: 40 mg Documented by: Enoxaparin Sodium (Lovenox) 80 mg SUBCUT ONETIME ONE Stop: 02/28/20 19:31 Last Admin: 02/28/20 21:50 Dose: Not Given Documented by: Enoxaparin Sodium (Lovenox) 85 mg SUBCUT ONETIME ONE Stop: 02/28/20 20:16 Last Admin: 02/28/20 21:46 Dose: 85 mg Documented by: Ceftriaxone Sodium 2 gm/ (Sodium Chloride) 100 mls @ 200 mls/hr IV ONETIME ONE Stop: 02/28/20 13:38 Last Admin: 02/28/20 13:26 Dose: 200 mls/hr Documented by: Sodium Chloride (Normal Saline) 500 mls @ 1,000 mls/hr IV .BOLUS ONE Stop: 02/28/20 15:11 Last Infusion: 02/28/20 15:58 Dose: Infused Documented by: Sodium Chloride (Normal Saline) 1,000 mls @ 100 mls/hr IV ASDIRECTED [facility] Last Admin: 02/29/20 07:31 Dose: 100 mls/hr Documented by: Ceftriaxone Sodium 1 gm/ (Sodium Chloride) 100 mls @ 200 mls/hr IV Q24H [facility] Stop: 03/04/20 09:01 Remdesivir 200 mg/ Sodium (Chloride) 250 mls @ 250 mls/hr IV ONETIME ONE Stop: 02/28/20 19:59 Last Admin: 02/28/20 21:45 Dose: 250 mls/hr Documented by: Remdesivir 200 mg/ Sodium (Chloride) 250 mls @ 250 mls/hr IV ONETIME ONE Stop: 02/28/20 22:14 Last Admin: 02/28/20 23:39 Dose: Not Given Documented by: Sodium Chloride (Normal Saline) Confirm Administered Dose 250 mls @ as directed .ROUTE .STK-MED ONE Stop: 02/28/20 21:11 Last Admin: 02/28/20 23:39 Dose: Not Given Documented by: Sodium Chloride (Normal Saline) 100 mls @ 75 mls/hr IV ASDIRECTED [facility] Stop: 02/29/20 10:00 Insulin Glargine (Lantus) 10 unit SUBCUT BIDAC [facility] Last Admin: 02/29/20 09:23 Dose: 10 units Documented by: Iopamidol (Isovue-370 (76%)) 100 ml IVPUSH ONETIME ONE Stop: 02/29/20 07:47 Last Admin: 02/29/20 08:19 Dose: 100 ml Documented by: Metoprolol Tartrate (Lopressor) 5 mg IVPUSH Q4H PRN PRN Reason: Tachycardia
[2020-02-29] MEDS ORDERED: Apixaban 5 MG Tab PO SCH (21:00)
[2020-02-29] MEDS ORDERED: Saccharomyces Boulardii (Probiotic) 250 MG Cap PO SCH (21:00)
[2020-02-29 21:31] VITALS: BP 127/67; PULSE 56
== END 2020-02-29 20:45 | DRG 177 ==
LOC: JD.ED 12:18 → JD.MS 17:03
PROVIDERS: ADMIT Internal Medicine; ATTEND Internal Medicine
DX: U07.1 COVID-19 (principal); J69.0 Pneumonitis due to inhalation of food and vomit; J18.9 Pneumonia, unspecified organism; I26.99 Other pulmonary embolism without acute cor pulmonale; J12.82 Pneumonia due to coronavirus disease 2019; R78.81 Bacteremia; B96.20 Unspecified Escherichia coli [E. coli] as the cause of diseases classified elsewhere; R09.02 Hypoxemia; I49.5 Sick sinus syndrome; E78.5 Hyperlipidemia, unspecified; I25.10 Atherosclerotic heart disease of native coronary artery without angina pectoris; G47.33 Obstructive sleep apnea (adult) (pediatric); M54.5 Low back pain; G89.29 Other chronic pain; M54.9 Dorsalgia, unspecified; K42.9 Umbilical hernia without obstruction or gangrene; E66.9 Obesity, unspecified; K64.9 Unspecified hemorrhoids; E11.65 Type 2 diabetes mellitus with hyperglycemia; Z86.16 Personal history of COVID-19; Z96.652 Presence of left artificial knee joint; Z98.890 Other specified postprocedural states; Z79.01 Long term (current) use of anticoagulants; H54.7 Unspecified visual loss; E78.00 Pure hypercholesterolemia, unspecified; G47.30 Sleep apnea, unspecified; Z95.5 Presence of coronary angioplasty implant and graft; N40.0 Benign prostatic hyperplasia without lower urinary tract symptoms; Z87.442 Personal history of urinary calculi; E11.9 Type 2 diabetes mellitus without complications; Z88.0 Allergy status to penicillin; Z88.1 Allergy status to other antibiotic agents; Z79.84 Long term (current) use of oral hypoglycemic drugs; Z79.82 Long term (current) use of aspirin; Z79.899 Other long term (current) drug therapy
CPT/HCPCS: 36415; 36600; 71045; 74176; 80053; 81001; 82306; 82728; 82803; 83605; 83615; 84439; 84443; 85025; 85379; 85610; 85652; 85730; 86140; 96365; 96372; 96375; 99285; J0696; J1100; J1650; J7030; 71275; 71275-26; 82962; 83735; 83880; 84484; 87070; 87086; 87088; 87186; 87205; 93005; 93970; 93970-26; 94667; 94762; 99222; 99239; 99284; A9270-GY; J0456; J0461; J1815-GY; J7050; J8540; Q9967

== ENCOUNTER 2020-05-25 00:34 | Emergency (ER) | payer MEDICARE ==
[2020-05-25 00:47] VITALS: BP 138/81; PULSE 70
--- NOTE | 2020-05-25 01:31 | EDM.PDOC ---
ED HPI GENERAL MEDICAL PROBLEM - General Chief Complaint: Lower Extremity Injury/Pain Stated Complaint: ARM PAIN NAUSEA Time Seen by Provider: 05/25/20 00:58 Source of Information: Reports: Patient, Family () History Limitations: Reports: No Limitations - History of Present Illness INITIAL COMMENTS - FREE TEXT/NARRATIVE: Mr. Stephenson is a very pleasant 69-year-old gentleman who now presents the ED after developing sudden-onset stabbing left upper extremity pain around 22:30 tonight, while watching television. He states that the pain was felt in his upper arm, below his shoulder, and down to just below his left elbow. He states that he took a single sublingual nitroglycerin around 23:45, and that the pain has gradually subsided since then. At present, the pain is minimal. The patient states that when the pain developed, he had associated nausea. He states that ever since he was diagnosed with COVID-19 in February, he has felt dyspneic on exertion, and he may have had some dyspnea associated with his arm pain tonight. No associated diaphoresis or sense of impending doom. No associated chest pain or discomfort. The patient states that he has had similar pain multiple times in the past, ever since he suffered nerve damage due to a cervical fracture, requiring surgical repair. The patient states that he ordinarily takes oxycodone on an as-needed basis for pain after he exerts himself, however, he did not last night, despite shoveling snow yesterday. Here in the ED, the patient is found to be hemodynamically stable, afebrile, saturating 96% on room air. Other than dyspnea on exertion since February, the patient denies having a recent fever, chills, sore throat, ear pain, nasal or sinus congestion, cough, dyspnea at rest, chest pain, palpitations, nausea, vomiting, constipation, diarrhea, abdominal pain, urinary symptoms, recent weight gain or weight loss, recent bloody bowel movements or black bowel movements, recent joint aches, headaches, or rashes. The patient's PCP is Dr. Gelacio Lloyd, however, he also sees BRITTANIE Cunningham, from time to time. His Rn Psych is Dr. Paulo Robin. Treatments RN TRANSITIONAL CARE: Reports: Nitroglycerin Left Arm Pain Score (Numeric/FACES): 8 - Related Data Allergies Allergy/AdvReac Type Severity Reaction Status Date / Time ciprofloxacin Allergy Severe Swollen Verified 05/25/20 00:47 Tongue Penicillins AdvReac Mild Fainting Verified 05/25/20 00:47 Home Meds: Home Meds DULoxetine [Cymbalta] 60 mg PO DAILY 05/10/14 [History] Pravastatin [Pravachol] 40 mg PO DAILY 05/10/14 [History] Tamsulosin HCl [Flomax] 0.4 mg PO QPM #14 cap.er.24h 05/10/14 [Rx] metFORMIN HCl [Metformin HCl] 500 mg PO BID 05/10/14 [History] Aspirin [Ecotrin] 81 mg PO DAILY 08/24/15 [History] Gabapentin [Neurontin] 600 mg PO TID 02/26/20 [History] Nitroglycerin 1 tab SL ASDIRECTED PRN 02/26/20 [History] oxyCODONE HCl/Acetaminophen [Oxycodone-Acetaminophen 5-325] 1 tab PO QID PRN 02/26/20 [History] Azithromycin [Zithromax] 250 mg PO DAILY #6 tablet 02/27/20 [Rx] Past Medical History HEENT History: Reports: Impaired Vision Cardiovascular History: Reports: Blood Clots/VTE/DVT, CAD, High Cholesterol Respiratory History: Reports: PE, Sleep Apnea (nightly CPAP 12) Gastrointestinal History: Reports: Colon Polyp, Hemorrhoids Genitourinary History: Reports: BPH, Renal Calculus Musculoskeletal History: Reports: Osteoarthritis Neurological History: Reports: Neuropathy, Peripheral (left cervical) Psychiatric History: Reports: Depression (untreated) Endocrine/Metabolic History: Reports: Diabetes, Type II, Obesity/BMI 30+ - Infectious Disease History Infectious Disease History: Reports: C-Difficile, Novel Coronavirus (dx'd 02/19/2020) - Past Surgical History HEENT Surgical History: Reports: Detached Retina (bilateral), Naso-Sinus Surgery Cardiovascular Surgical History: Reports: Coronary Artery Stent (x 3, around 2010), Other (See Below) (Coronary angiogram x 1 around 2010) GI Surgical History: Reports: Colonoscopy (x 2), Hernia, Abdominal (periumbilical), Other (See Below) (Hemorrhoidectomy) Neurological Surgical History: Reports: C-Spine (ACDF), Lumbar Spine (fusion + laminectomy) Musculoskeletal Surgical History: Reports: Arthroscopic Knee (left), Carpal Tunnel (left only), Other (See Below) (Numerous fingers pinned) Social & Family History - Tobacco Use Tobacco Use Status *Q: Former Tobacco User Tobacco Use Within Last Twelve Months: Smokeless Tobacco (Chews around 1/3 can per day) Years of Tobacco use: 39 Packs/Tins Daily: 0.5 Month/Year Tobacco Last Used: Quit around 2010 Tobacco Use Comment: Started smoking around 20 yrs old - Caffeine Use Caffeine Use: Reports: Coffee - Alcohol Use Alcohol Use History: Yes Alcohol Use Frequency: Rarely - Recreational Drug Use Recreational Drug Use: No - Living Situation & Occupation Living situation: Reports: (For employed [employer]. apparently is currently in [place]), with Spouse Occupation: Employed (Rancher) Review of Systems - Review of Systems Review Of Systems: Comprehensive ROS is negative, except as noted in HPI. ED EXAM, GENERAL - Physical Exam Exam: See Below Exam Limited By: No Limitations General Appearance: Alert, WD/WN, No Apparent Distress Eye Exam: Bilateral Eye: EOMI, Normal Inspection Ears: Normal External Exam, Hearing Grossly Normal Nose: Normal Inspection Throat/Mouth: Normal Voice, No Airway Compromise Head: Atraumatic, Normocephalic Neck: Normal Inspection, Full Range of Motion Respiratory/Chest: No Respiratory Distress, Lungs Clear, Normal Breath Sounds, No Accessory Muscle Use, Chest Non-Tender Cardiovascular: Normal Peripheral Pulses, Regular Rate, Rhythm, No Gallop, No JVD, No Murmur, No Rub Peripheral Pulses: 3+: Radial (L), Radial (R) GI/Abdominal: Normal Bowel Sounds, Soft, Non-Tender, No Organomegaly, No D istention, No Abnormal Bruit, No Mass Back Exam: Normal Inspection, Full Range of Motion, NT Extremities: Normal Range of Motion, No Pedal Edema, Normal Capillary Refill, Other (Reproducible tenderness to palpation of the left biceps muscle, as well as to palpation of the proximal left forearm extensor musculature. No tenderness to palpation of the left shoulder or left elbow. Pain is not reproduced with the patient flexing his arm at the elbow. Neurovascular status of t) Neurological: Alert, Oriented, Normal Cognition, No Motor/Sensory Deficits Psychiatric: Normal Affect Skin Exam: Warm, Dry, Intact, Normal Color, No Rash #1 Interpretation EKG Date: 04/12/21 Time: 00:48 Rhythm: NSR Rate (Beats/Min): 70 [place]: Normal P-Wave: Present QRS: Normal ST-T: Normal QT: Normal Comparison: No Change (02/29/2020) Course - Vital Signs Last Recorded V/S: Last Vital Signs Temp 36.4 C 05/25/20 00:41 Pulse 70 05/25/20 00:41 Resp 14 05/25/20 00:41 BP 138/81 05/25/20 00:41 Pulse Ox 96 05/25/20 00:41 - Orders/Labs/Meds Labs: Laboratory Tests 05/25/20 05/25/20 Range/Units 01:40 01:40 WBC 6.54 (4.23-9.07) K/mm3 RBC 4.68 (4.63-6.08) M/mm3 Hgb 13.1 L D (13.7-17.5) gm/dl Hct 41.5 (40.1-51.0) % MCV 88.7 (79.0-92.2) fl MCH 28.0 (25.7-32.2) pg MCHC 31.6 L (32.2-35.5) g/dl RDW Std Deviation 48.4 H (35.1-43.9) fL Plt Count 194 (163-337) K/mm3 MPV 10.0 (9.4-12.3) fl Neutrophils % (Manual) 63 H (40-60) % Band Neutrophils % 0 (0-10) % Lymphocytes % (Manual) 23 (20-40) % Atypical Lymphs % 0 % Monocytes % (Manual) 9 (2-10) % Eosinophils % (Manual) 4 (0.8-7.0) % Basophils % (Manual) 1 (0.2-1.2) Platelet Estimate Adequate RBC Morph Comment Normal Sodium 141 (136-145) mEq/L Potassium 3.8 (3.5-5.1) mEq/L Chloride 104 (98-107) mEq/L Carbon Dioxide 25 (21-32) mEq/L Anion Gap 15.8 H (5-15) BUN 20 H (7-18) mg/dL Creatinine 1.1 (0.7-1.3) mg/dL Est Cr Clr Drug Dosing 67.50 mL/min Estimated GFR (MDRD) > 60 (>60) mL/min BUN/Creatinine Ratio 18.2 H (14-18) Glucose 132 H (80-115) mg/dL Calcium 8.1 L (8.5-10.1) mg/dL Magnesium 1.9 (1.8-2.4) mg/dl Total Bilirubin 0.6 (0.2-1.0) mg/dL AST 19 (15-37) U/L ALT 30 (16-63) U/L Alkaline Phosphatase 79 (46-116) U/L Troponin I < 0.017 (0.00-0.056) ng/mL Total Protein 6.8 (6.4-8.2) g/dl Albumin 3.6 (3.4-5.0) g/dl Globulin 3.2 gm/dL Albumin/Globulin Ratio 1.1 (1-2) - Re-Assessments/Exams Free Text/Narrative Re-Assessment/Exam: 05/25/20 01:26 As above, the patient developed sudden onset stabbing left upper extremity pain around 22:30 last night, while watching TV, with associated nausea and possible dyspnea, but no diaphoresis. No chest pain. He took a sublingual nitroglycerin around 2345, and his pain has been gradually subsiding since then. He states that it is minimal here in the ED. An ECG, obtained at triage, demonstrates no concerning ischemic changes. On physical examination, the pain is reproducible with direct palpation of his left biceps muscle, as well as to the proximal extensor musculature of his left forearm, while his left shoulder and left elbow from a nontender. The patient states that he ordinarily takes oxycodone on an as-needed basis for pain relief after he exerts himself, but did not last night, despite exerting himself by shoveling snow yesterday. Of particular interest, the patient did not suffer any discomfort while shoveling at the time. Based on his history and physical examination, the patient's pain appears to be due to muscle pain, however, I have ordered some blood tests just to make sure that there is nothing out of the ordinary. 05/25/20 02:25 The patient's CBC is remarkable for a Hgb slightly depressed at 13.1, with a Hct normal at 41.5, and the remainder of his CBC being unremarkable. His CMP is remarkable for an anion gap slightly elevated at 15.8, but with a bicarbonate normal at 25. His BUN is slightly elevated at 20, with a Cr normal at 1.1, and mild hyperglycemia of 132, and the remainder of his CMC being unremarkable. His magnesium level is within normal limits at 1.9. His troponin is undetectably low. 05/25/20 02:48 Test results discussed with the patient and his . The patient appears to have strained some muscles in his left upper extremity. I recommended that he take it easy, and take Tylenol or his usual oxycodone as needed for pain. Since he is on Eliquis, he should probably avoid NSAIDs. Departure - Departure Time of Disposition: 02:49 Disposition: Home, Self-Care 01 Condition: Good Clinical Impression: Muscle strain of left upper extremity - Discharge Information *PRESCRIPTION DRUG MONITORING PROGRAM REVIEWED*: Not Applicable *COPY OF PRESCRIPTION DRUG MONITORING REPORT IN PATIENT ANA MARIA: Not Applicable Instructions: Muscle Strain Referrals: Gelacio Lloyd MD [Primary Care Provider] - Abby Brice PA-C [Physician High Pressure Boiler Operator] - Paulo Robin MD [Ordering Only Provider] - Forms: ED Department Discharge Additional Instructions: You were seen in the emergency room after developing sudden onset left upper extremity pain while watching television tonight. Work-up in the ER included several blood tests and an ECG, all of which were unremarkable. You have not suffered a heart attack. Based on your history, physical exam, and ER tests, you most likely strained some of the muscles in your left arm when you were shoveling. We recommend that you take it easy. You may take [id number] Tylenol, or your prescribed oxycodone as needed for pain. Because you are on Eliquis, you s hould probably avoid NSAIDs, such as aspirin, ibuprofen, or naproxen. If any other problems, please do not hesitate to return to the ER. Sepsis Event Note (ED) - Evaluation Sepsis Screening Result: No Definite Risk - Focused Exam Vital Signs: Vital Signs Temp Pulse Resp BP Pulse Ox 05/25/20 00:41 36.4 C 70 14 138/81 96
== END 2020-05-25 02:52 | disposition home or self-care (01) ==
LOC: JD.ED 00:34
DX: S46.912A Strain of unspecified muscle, fascia and tendon at shoulder and upper arm level, left arm, initial encounter (principal); E78.00 Pure hypercholesterolemia, unspecified; I25.10 Atherosclerotic heart disease of native coronary artery without angina pectoris; N40.0 Benign prostatic hyperplasia without lower urinary tract symptoms; M19.90 Unspecified osteoarthritis, unspecified site; E11.42 Type 2 diabetes mellitus with diabetic polyneuropathy; E66.9 Obesity, unspecified; Z68.41 Body mass index [BMI] 40.0-44.9, adult; Z86.16 Personal history of COVID-19; Z87.891 Personal history of nicotine dependence; Z88.1 Allergy status to other antibiotic agents; Z88.0 Allergy status to penicillin; Z79.82 Long term (current) use of aspirin; Z79.84 Long term (current) use of oral hypoglycemic drugs; Z79.899 Other long term (current) drug therapy; X58.XXXA Exposure to other specified factors, initial encounter
CPT/HCPCS: 36415; 80053; 83735; 84484; 85007; 85027; 93005; 93010; 99282; 99283-25

== ENCOUNTER 2021-09-30 09:16 | Day surgery (SDC) | payer MEDICARE, OTHER ==
[2021-09-30] MEDS: Polymyxin B/Trimethoprim 10 ML Bottle EYELF SCH ×3 (08:43→10:26)
[2021-09-30] MEDS: Brimonidine 0.2% Ophth Soln 5 ML Bottle EYELF SCH ×3 (08:49→10:26)
[2021-09-30] MEDS: Phenylephrine 2.5% Ophth Soln 2 ML Bot EYELF SCH ×5 (08:54→10:03)
[2021-09-30] MEDS: Tropicamide 1% Ophth Soln 15 ML Bottle EYELF SCH ×4 (08:59→09:43)
[~2021-09-30 09:16] MED LIST: Cefuroxime 10 MG/ML SYRINGE EYELF SCH; Lidocaine 1% PF 2 ML SDV INJECT SCH; Pilocarpine 4% Ophth Soln 15 ML Bot EYELF SCH
[2021-09-30] MEDS: Tetracaine HCl/PF 0.5% 4 ML Bottle EYEBOTH SCH ×4 (09:48→10:09)
[2021-09-30 10:39] VITALS: BP 126/70; PULSE 56
== END 2021-09-30 10:36 | disposition home or self-care (01) ==
LOC: JD.SDS 09:16
PROVIDERS: ATTEND Ophthalmology
DX: E11.36 Type 2 diabetes mellitus with diabetic cataract (principal); H26.9 Unspecified cataract; E11.42 Type 2 diabetes mellitus with diabetic polyneuropathy; F41.9 Anxiety disorder, unspecified; E78.00 Pure hypercholesterolemia, unspecified; F32.A Depression, unspecified; I25.10 Atherosclerotic heart disease of native coronary artery without angina pectoris; G47.33 Obstructive sleep apnea (adult) (pediatric); M19.90 Unspecified osteoarthritis, unspecified site; E66.9 Obesity, unspecified; N40.0 Benign prostatic hyperplasia without lower urinary tract symptoms; Z68.39 Body mass index [BMI] 39.0-39.9, adult; Z98.890 Other specified postprocedural states; Z87.891 Personal history of nicotine dependence; Z88.0 Allergy status to penicillin; Z88.1 Allergy status to other antibiotic agents; Z86.16 Personal history of COVID-19; Z79.84 Long term (current) use of oral hypoglycemic drugs; Z79.82 Long term (current) use of aspirin; Z79.899 Other long term (current) drug therapy
CPT/HCPCS: 66984; J0697; C1780

== ENCOUNTER 2021-11-04 11:46 | Day surgery (SDC) | payer MEDICARE, OTHER ==
[2021-11-04] MEDS: Polymyxin B/Trimethoprim 10 ML Bottle EYERT SCH ×3 (11:34→13:17)
[2021-11-04] MEDS: Brimonidine 0.2% Ophth Soln 5 ML Bottle EYERT SCH ×3 (11:39→13:17)
[2021-11-04] MEDS: Phenylephrine 2.5% Ophth Soln 2 ML Bot EYERT SCH ×5 (11:45→12:57)
[~2021-11-04 11:46] MED LIST changes: -Cefuroxime 10 MG/ML SYRINGE EYELF SCH; +Cefuroxime 10 MG/ML SYRINGE EYERT SCH; -Pilocarpine 4% Ophth Soln 15 ML Bot EYELF SCH; +Pilocarpine 4% Ophth Soln 15 ML Bot EYERT SCH
[2021-11-04] MEDS: Tropicamide 1% Ophth Soln 15 ML Bottle EYERT SCH ×4 (11:49→12:40)
[2021-11-04] MEDS: Tetracaine HCl/PF 0.5% 4 ML Bottle EYEBOTH SCH ×4 (12:48→13:06)
[2021-11-04 13:33] VITALS: BP 121/80; PULSE 62
== END 2021-11-04 13:25 | disposition home or self-care (01) ==
LOC: JD.SDS 11:46
PROVIDERS: ATTEND Ophthalmology
DX: E11.36 Type 2 diabetes mellitus with diabetic cataract (principal); H25.811 Combined forms of age-related cataract, right eye; F41.9 Anxiety disorder, unspecified; E78.00 Pure hypercholesterolemia, unspecified; Z88.0 Allergy status to penicillin; Z88.8 Allergy status to other drugs, medicaments and biological substances; E66.9 Obesity, unspecified; Z98.890 Other specified postprocedural states
CPT/HCPCS: 66984; J0697; C1780